=== PATIENT | male | born 1965 | race Caucasian/White ===

== ENCOUNTER 2017-09-19 07:47 | Day surgery (SDC) | payer MEDICAID ==
[2017-09-19] VITALS (11 sets, daily range): BP systolic 126–187; BP diastolic 67–92
[~2017-09-19] VITALS: Ht 188 cm; Wt 112.8 kg
[2017-09-19] MEDS ORDERED: nitroGLYCERIN 0.4mg SUBLingual tab SL PRN (08:15)
[2017-09-19] MEDS ORDERED: LORazepam 0.5 MG tablet PO PRN (08:15)
[2017-09-19] MEDS ORDERED: diphenhydrAMINE 25mg capsule PO PRN (08:15)
[2017-09-19] MEDS ORDERED: normal saline 1000ml 1,000 ML IV SCH (08:15)
[2017-09-19] MEDS ORDERED: TURM538C PO (08:24)
[2017-09-19] MEDS ORDERED: GEMF600T PO (08:24)
[2017-09-19] MEDS ORDERED: AMLO2.5T2 PO (08:24)
[2017-09-19] MEDS ORDERED: ASPI81TA52 PO (08:24)
[2017-09-19] MEDS ORDERED: LOSA25TA96 PO (08:24)
[2017-09-19] MEDS ORDERED: OMEG1CAP20 PO (08:24)
[2017-09-19] MEDS ORDERED: SERT25TA PO (08:24)
[2017-09-19 08:46] LABS: BASOPHILS % (AUTO) 0.5 % (0-1); EOSINOPHILS # (AUTO) 0.1 X10'3 (0-0.9); EOSINOPHILS % (AUTO) 2.3 % (0-6); HEMATOCRIT 47.3 % (42.0-52.0); HEMOGLOBIN 16.6 g/dl (14.0-17.9); LYMPHOCYTES # (AUTO) 2.3 X10'3 (1.1-4.8); MEAN CORPUSCULAR HEMOGLOBIN 30.2 PG (27.0-31.0); MEAN CORPUSCULAR HGB CONC 35.1 % (33.0-36.5); MEAN CORPUSCULAR VOLUME 86.2 FL (78-98); MEAN PLATELET VOLUME 8.3 FL (7.4-10.4); MONOCYTES # (AUTO) 0.4 X10'3 (0-0.9); MONOCYTES % (AUTO) 7.6 % (2-12); NEUTROPHILS # (AUTO) 2.9 X10'3 (1.8-7.7); NEUTROPHILS % (AUTO) 50.6 % (42-75); PLATELET COUNT 253 X10'3 (140-440); RED BLOOD COUNT 5.49 X10'6 (4.70-6.10); RED CELL DISTRIBUTION WIDTH 12.8 % (11.5-14.5); WHITE BLOOD COUNT 5.8 X10'3 (4.5-11.0)
[2017-09-19 08:55] LABS: ALBUMIN 4.5 G/DL (3.4-5.0); ANION GAP 11 (8-16); BLOOD UREA NITROGEN 10 MG/DL (7-18); BUN/CREATININE RATIO 13.2 (5.4-32.0); CALCIUM 9.4 MG/DL (8.5-10.1); CHLORIDE 105 MMOL/L (99-107); CREATININE 0.76 MG/DL (0.60-1.10); GLUCOSE 100 MG/DL (70-104); POTASSIUM 3.1 MMOL/L (3.5-5.1); SODIUM 143 MMOL/L (135-145); TOTAL CARBON DIOXIDE 27.3 MMOL/L (24-32); eGFR > 90 ML/MIN
[2017-09-19 08:57] LABS: INR 1.1 INR; PARTIAL THROMBOPLASTIN TIME 27 SECONDS (22-32)
[2017-09-19] MEDS ORDERED: iohexol 350 MG/ML 50ML vial IV ONE ×2 (10:21→11:06)
[2017-09-19] MEDS ORDERED: midazolam 2 mg/2 ml injection ONE (10:21)
[2017-09-19] MEDS ORDERED: iohexol 350MG/ML 100ml bottle IV ONE (10:21)
[2017-09-19] MEDS ORDERED: fentaNYL/PF 50MCG/1 ML 2ML syringe ONE (10:21)
[2017-09-19] MEDS ORDERED: LIDOcaine 1%/PF (10mg/ml) 5ml vial ONE (10:21)
[2017-09-19] MEDS ORDERED: OXAZEpam 15mg capsule PO PRN (12:25)
[2017-09-19] MEDS ORDERED: proCHLORperazine 10 MG/2 ml inj IV PRN (12:25)
[2017-09-19] MEDS ORDERED: HYDROcodone/acetaminophen 10/325mg tab PO PRN (12:25)
[2017-09-19] MEDS ORDERED: HYDROcodone/acetaminophen 5mg/325mg tablet PO PRN (12:25)
[2017-09-19] MEDS ORDERED: ondansetron/PF 4mg/2ml inj IV PRN (12:25)
== END 2017-09-19 17:00 | disposition home or self-care (01) ==
LOC: SSTAY O 07:47
PROVIDERS: ATTEND Internal Medicine Cardiovascular Disease
DX: I25.10 Atherosclerotic heart disease of native coronary artery without angina pectoris (principal); G47.33 Obstructive sleep apnea (adult) (pediatric); F17.220 Nicotine dependence, chewing tobacco, uncomplicated; E78.5 Hyperlipidemia, unspecified; I10 Essential (primary) hypertension; M19.90 Unspecified osteoarthritis, unspecified site; I49.9 Cardiac arrhythmia, unspecified; F32.9 Major depressive disorder, single episode, unspecified; Z79.82 Long term (current) use of aspirin; Z83.3 Family history of diabetes mellitus; Z98.890 Other specified postprocedural states; Z90.89 Acquired absence of other organs; Z79.899 Other long term (current) drug therapy
CPT/HCPCS: 36415; 71046; 80048; 85025; 85610; 85730; 93458; 99152; 99153; A6257; C1760; C1769; J1644; J2001; J2250; J3010; J7030; Q0163; Q9967; A4620

== ENCOUNTER 2020-10-11 12:14 | Inpatient (IN) | payer MEDICAID ==
[~2020-10-11] VITALS: Ht 188 cm; Wt 127.0 kg
[~2020-10-11 12:14] MED LIST: AMLO2.5T2 PO; ASPI81TA52 PO; GEMF600T PO; LOSA25TA96 PO; OMEG1CAP20 PO; SERT25TA PO; TURM538C PO
[2020-10-11] MEDS ORDERED: ALBU90AE PO (12:47)
[2020-10-11 12:52] LABS: BASOPHILS % (AUTO) 0.4 % (0-1); EOSINOPHILS % (AUTO) 0 % (0-6); HEMATOCRIT 44.6 % (42.0-52.0); HEMOGLOBIN 15.1 g/dl (14.0-17.9); LYMPHOCYTES # (AUTO) 0.4 X10'3 (1.1-4.8); LYMPHOCYTES % (AUTO) 5.6 % (21-51); MEAN CORPUSCULAR HGB CONC 33.9 g/dL (33.0-36.5); MEAN CORPUSCULAR VOLUME 88.3 FL (78-98); MEAN PLATELET VOLUME 8.8 FL (7.4-10.4); MONOCYTES # (AUTO) 0.2 X10'3 (0-0.9); MONOCYTES % (AUTO) 3.1 % (2-12); NEUTROPHILS # (AUTO) 6.7 X10'3 (1.8-7.7); NEUTROPHILS % (AUTO) 90.9 % (42-75); PLATELET COUNT 172 X10'3 (140-440); RED BLOOD COUNT 5.05 X10'6 (4.70-6.10); RED CELL DISTRIBUTION WIDTH 12.6 % (11.5-14.5); WHITE BLOOD COUNT 7.4 X10'3 (4.5-11.0)
[2020-10-11 12:59] LABS: CLARITY,URINE SLIGHTLY CLOUDY (Clear); COLOR,URINE YELLOW (Yellow); GLUCOSE, URINE NEGATIVE (Neg); KETONES,URINE NEGATIVE (Neg); LEUKOCYTE ESTERASE ,URINE NEGATIVE (Neg); NITRITES, URINE NEGATIVE (Neg); OCCULT BLOOD,URINE MODERATE (Neg); PROTEIN,URINE >=300 mg/dl (Neg)
[2020-10-11 13:01] LABS: UA COLLECTION TYPE CLN CATCH MIDSTREAM
[2020-10-11 13:08] LABS: BACTERIA,URINE 1+ /HPF (Neg); CELLULAR CAST 0-4 /LPF (NEGATIVE); SQUAMOUS EPITHELIAL CELL,UR MODERATE /LPF (FEW)
[2020-10-11 13:09] LABS: HYALINE CASTS 0-3 /LPF (NEGATIVE)
[2020-10-11 13:20] LABS: ALANINE AMINOTRANSFERASE 26 U/L (12-78); ALBUMIN 2.7 G/DL (3.4-5.0); ALBUMIN/GLOBULIN RATIO 0.6 (1.1-1.5); ALKALINE PHOSPHATASE 74 IU/L (46-116); ANION GAP 12 (8-16); ASPARTATE AMINO TRANSFERASE 71 U/L (10-37); BILIRUBIN,TOTAL 0.4 MG/DL (0.1-1.0); BLOOD UREA NITROGEN 14 MG/DL (7-18); BUN/CREATININE RATIO 18.7 (5.4-32.0); CALCIUM 8.6 MG/DL (8.5-10.1); CHLORIDE 102 MMOL/L (99-107); CREATININE 0.75 MG/DL (0.60-1.10); GLUCOSE 132 MG/DL (70-104); POTASSIUM 3.7 MMOL/L (3.5-5.1); SODIUM 138 MMOL/L (135-145); TOTAL CARBON DIOXIDE 24.4 MMOL/L (24-32); TOTAL PROTEIN 7.3 G/DL (6.4-8.2); eGFR > 90 ML/MIN
[2020-10-11] MEDS ORDERED: normal saline 1000ML IV soln IVB ONE (13:25)
--- NOTE | 2020-10-11 13:58 | NUR ---
Pt gave verbal consent to update alton and daughter Augusta, 2 separate incoming calls, on his status which was done. indicated she is covid positive currently, 1.5 hrs away and without a cell phone to be able to notify staff she is here when pt ready for DC. Reassured her staff would work out details when it was time and asked her to be sure to communicate she was 1.5 hrs out.
[2020-10-11] MEDS ORDERED: AMLO10TA13 PO (14:01)
[2020-10-11] MEDS ORDERED: LOSA100T57 PO (14:02)
[2020-10-11] MEDS ORDERED: ATOR40TA72 PO (14:03)
--- NOTE | 2020-10-11 14:26 | NUR ---
Lab at bedside to draw cultures
[2020-10-11] MEDS ORDERED: acetaminophen 650mg rectal suppository RC PRN (15:00)
[2020-10-11] MEDS ORDERED: magnesium hydroxide 30ml (MOM) UD suspension PO PRN (15:00)
[2020-10-11] MEDS ORDERED: magnesium 4gm in 100ml NS 100 ML IV PRN (15:00)
[2020-10-11] MEDS ORDERED: bisacodyl 10mg suppository rectal RC PRN (15:00)
[2020-10-11] MEDS ORDERED: dexamethasone 4mg/ml inj IV SCH (15:00)
[2020-10-11] MEDS ORDERED: morphine 2 MG/ML inj. syringe IV PRN (15:00)
[2020-10-11] MEDS: normal saline 1000ml 1,000 ML IV SCH (15:00)
[2020-10-11] MEDS ORDERED: mag hydrox/Alum hydrox/simeth 30ml oral suspension PO PRN (15:00)
[2020-10-11] MEDS ORDERED: potassium Cl 40MEQ/1/2NS 520ml 520 ML IV PRN ×2 (15:00)
[2020-10-11] MEDS ORDERED: magnesium 2GM in 50ml NS 50 ML IV PRN (15:00)
[2020-10-11] MEDS ORDERED: ondansetron/PF 4mg/2ml inj IV PRN (15:00)
[2020-10-11] MEDS ORDERED: magnesium Cl slow-release 64mg tablet PO PRN (15:00)
[2020-10-11] MEDS ORDERED: diphenhydrAMINE 25mg capsule PO PRN (15:00)
[2020-10-11] MEDS ORDERED: acetaminophen 325mg tablet PO PRN ×2 (15:00)
[2020-10-11] MEDS ORDERED: potassium Cl 20 mEq SR tablet PO PRN (15:00)
[2020-10-11 15:30] LABS: PARTIAL THROMBOPLASTIN TIME 33 SECONDS (22-32)
[2020-10-11] MEDS ORDERED: iohexol 350MG/ML 100ml bottle IV ONE (15:36)
[2020-10-11] MEDS ORDERED: NS IV ONE (15:45)
[2020-10-11] MEDS ORDERED: REMDESIVIR IV ONE (15:45)
[2020-10-11 15:46] LABS: HEMOGLOBIN A1C 5.8 % (4.5-6.2)
[2020-10-11] MEDS: HYDROcodone/acetaminophen 5mg/325mg tablet PO PRN (15:53)
--- NOTE | 2020-10-11 16:09 | NUR ---
Spoke with Dr. Murillo re: Remdesivir and Decadron. We will change time of decadron to 1999, and our pharmacist will call [facility] pharmacy to find out what dose of Remdesivir pt was given and f/u.
[2020-10-11] MEDS ORDERED: REMDESIVIR 100 MG in NS 100ml IVPB IV ONE (16:20)
--- NOTE | 2020-10-11 16:26 | NUR ---
Pt to go to CT, then to floor with IVET Robert
[2020-10-11 18:00] VITALS: BP 178/94
--- NOTE | 2020-10-11 18:02 | NUR ---
Patient in room PCU 3008. I have received report from Bibiana and had the opportunity to ask questions and assume patient care.
--- NOTE | 2020-10-11 18:18 | NUR ---
Page sent martina Addendum: 10/11/20 at 1819 by Bibiana Aquino RN Page sent to Dr. Murillo advising patient's bp is elevated 178/94, awaiting new orders
[2020-10-11] MEDS ORDERED: amLODIPine 5mg tablet PO ONE (18:25)
[2020-10-11] MEDS: K and/or MAG REPLACEMENT MC SCH (20:00)
[2020-10-11] MEDS: enoxaparin 60mg/0.6ml syringe SUBCUT SCH (20:28)
[2020-10-11] MEDS: losartan 50mg tablet PO SCH (20:29)
[2020-10-11] MEDS: dexamethasone 4mg/ml inj IV SCH (20:29)
--- NOTE | 2020-10-11 21:22 | NUR ---
patient is observed to be breathing easily, he has been given a cup of water ad instructed on how to use his Incentive spirometer
--- NOTE | 2020-10-11 23:43 | NUR ---
patient is saturating @85-87 % on 6L on Nasal canula- respiratory therapy has been notified to give him a breathing treatment.patient has also been instructed to use his IS and dep cough.
[2020-10-12] MEDS: ALBUTEROL INHALER 1 PUFF/90 MCG INHALER IH PRN (00:53)
[2020-10-12 01:47] LABS: BASOPHILS % (AUTO) 0.1 % (0-1); EOSINOPHILS % (AUTO) 0 % (0-6); HEMATOCRIT 39.8 % (42.0-52.0); HEMOGLOBIN 13.7 g/dl (14.0-17.9); LYMPHOCYTES # (AUTO) 0.5 X10'3 (1.1-4.8); LYMPHOCYTES % (AUTO) 6.7 % (21-51); MEAN CORPUSCULAR HEMOGLOBIN 29.9 PG (27.0-31.0); MEAN CORPUSCULAR HGB CONC 34.6 g/dL (33.0-36.5); MEAN CORPUSCULAR VOLUME 86.5 FL (78-98); MEAN PLATELET VOLUME 8.9 FL (7.4-10.4); MONOCYTES # (AUTO) 0.2 X10'3 (0-0.9); MONOCYTES % (AUTO) 3.4 % (2-12); NEUTROPHILS # (AUTO) 6.4 X10'3 (1.8-7.7); NEUTROPHILS % (AUTO) 89.8 % (42-75); PLATELET COUNT 176 X10'3 (140-440); RED CELL DISTRIBUTION WIDTH 12.6 % (11.5-14.5); WHITE BLOOD COUNT 7.2 X10'3 (4.5-11.0)
[2020-10-12 01:53] LABS: D-DIMER 0.44 MG/L FEU (0-0.50)
[2020-10-12 02:00] VITALS: BP_SYST 156; BP_SYST 163; BP_DIAS 81; BP_DIAS 95
[2020-10-12 02:01] LABS: ALANINE AMINOTRANSFERASE 32 U/L (12-78); ALBUMIN 2.5 G/DL (3.4-5.0); ALBUMIN/GLOBULIN RATIO 0.6 (1.1-1.5); ALKALINE PHOSPHATASE 74 IU/L (46-116); ANION GAP 10 (8-16); ASPARTATE AMINO TRANSFERASE 76 U/L (10-37); BILIRUBIN,TOTAL 0.4 MG/DL (0.1-1.0); BLOOD UREA NITROGEN 19 MG/DL (7-18); BUN/CREATININE RATIO 24.1 (5.4-32.0); CALCIUM 8.3 MG/DL (8.5-10.1); CHLORIDE 101 MMOL/L (99-107); CREATININE 0.79 MG/DL (0.60-1.10); GLUCOSE 135 MG/DL (70-104); POTASSIUM 3.1 MMOL/L (3.5-5.1); SODIUM 138 MMOL/L (135-145); TOTAL CARBON DIOXIDE 27.2 MMOL/L (24-32); TOTAL PROTEIN 6.9 G/DL (6.4-8.2); eGFR > 90 ML/MIN
[2020-10-12 02:05] LABS: C-REACTIVE PROTEIN 14.54 MG/DL (0.0-0.5); CHOL/HDL RATIO 2.5 (0.00-4.99); CHOLESTEROL 111 MG/DL (0-200); HDL CHOLESTEROL 45 MG/DL (35-60); LACTATE DEHYDROGENASE 504 U/L (85-227); LDL CHOLESTEROL 44 MG/DL (50-100); MAGNESIUM 1.9 MG/DL (1.5-2.4); TRIGLYCERIDES 126 MG/DL (20-135)
[2020-10-12 02:06] LABS: PHOSPHORUS 2.9 MG/DL (2.3-4.5)
[2020-10-12] MEDS: normal saline 1000ml 1,000 ML IV SCH ×2 (04:20→16:32)
[2020-10-12 08:00] VITALS: BP 165/93
[2020-10-12] MEDS ORDERED: [UNRECOGNIZED DRUG - OTHER] PO SCH (08:00)
[2020-10-12] MEDS ORDERED: FISH OIL PO SCH (08:00)
[2020-10-12] MEDS ORDERED: OMEGA PO SCH (08:00)
[2020-10-12] MEDS ORDERED: FATTY ACIDS PO SCH (08:00)
[2020-10-12] MEDS: guaiFENesin/codeine phos 10ml UD oral syrup PO PRN ×4 (08:07→21:30)
[2020-10-12] MEDS: aspirin 81mg tablet.DR PO SCH (08:07)
[2020-10-12] MEDS: sertraline 50mg tablet PO SCH (08:07)
[2020-10-12] MEDS: atorvastatin 20mg tablet PO SCH (08:08)
[2020-10-12] MEDS: enoxaparin 60mg/0.6ml syringe SUBCUT SCH ×2 (08:08→19:42)
[2020-10-12] MEDS: dexamethasone 4mg/ml inj IV SCH ×2 (08:09→19:43)
[2020-10-12] MEDS: losartan 50mg tablet PO SCH ×2 (08:14→19:41)
[2020-10-12] MEDS: amLODIPine 5mg tablet PO SCH (08:14)
[2020-10-12] MEDS: REMDESIVIR 100MG inj. 100 MG in normal saline 100ml IV soln 100 ML IV SCH (09:43)
[2020-10-12] MEDS: HYDROcodone/acetaminophen 10/325mg tab PO PRN ×2 (09:43→14:11)
[2020-10-12] MEDS: K and/or MAG REPLACEMENT MC SCH ×2 (09:55→19:43)
[2020-10-12] MEDS: potassium Cl 20 mEq SR tablet PO PRN ×3 (10:55→19:41)
[2020-10-12 12:00] VITALS: BP 122/63
[2020-10-12 16:00] VITALS: BP 171/90
--- NOTE | 2020-10-12 16:30 | NUR ---
Notified Dr. Murillo in regards to patient's bp of 171/90 awaiting new orders
[2020-10-12 18:00] VITALS: BP 147/76
--- NOTE | 2020-10-12 18:00 | NUR ---
patient report received from [facility], all discussions were done.
[2020-10-13] MEDS: HYDROcodone/acetaminophen 10/325mg tab PO PRN ×3 (01:30→13:23)
[2020-10-13 02:00] VITALS: BP 157/73
[2020-10-13] MEDS: guaiFENesin/codeine phos 10ml UD oral syrup PO PRN ×3 (03:30→20:05)
[2020-10-13] MEDS ORDERED: atropine 0.1mg/ml 10ml syringe IV ONE (05:00)
--- NOTE | 2020-10-13 05:26 | NUR ---
patient received a 0.5mg of Atropine for his slow heart rate, medication was pushed by jefferson Cao RN.
[2020-10-13 07:00] VITALS: BP 153/55
[2020-10-13 07:24] LABS: BASOPHILS % (AUTO) 0.1 % (0-1); EOSINOPHILS % (AUTO) 0 % (0-6); HEMATOCRIT 40.2 % (42.0-52.0); HEMOGLOBIN 13.5 g/dl (14.0-17.9); LYMPHOCYTES # (AUTO) 0.7 X10'3 (1.1-4.8); LYMPHOCYTES % (AUTO) 6.4 % (21-51); MEAN CORPUSCULAR HEMOGLOBIN 29.8 PG (27.0-31.0); MEAN CORPUSCULAR HGB CONC 33.5 g/dL (33.0-36.5); MEAN CORPUSCULAR VOLUME 89.1 FL (78-98); MEAN PLATELET VOLUME 8.9 FL (7.4-10.4); MONOCYTES # (AUTO) 0.7 X10'3 (0-0.9); MONOCYTES % (AUTO) 5.9 % (2-12); NEUTROPHILS % (AUTO) 87.6 % (42-75); PLATELET COUNT 219 X10'3 (140-440); RED BLOOD COUNT 4.51 X10'6 (4.70-6.10); RED CELL DISTRIBUTION WIDTH 12.8 % (11.5-14.5); WHITE BLOOD COUNT 11.5 X10'3 (4.5-11.0)
[2020-10-13 07:38] LABS: D-DIMER 0.46 MG/L FEU (0-0.50)
[2020-10-13 07:59] LABS: ALANINE AMINOTRANSFERASE 39 U/L (12-78); ALBUMIN 2.4 G/DL (3.4-5.0); ALBUMIN/GLOBULIN RATIO 0.6 (1.1-1.5); ALKALINE PHOSPHATASE 82 IU/L (46-116); ANION GAP 7 (8-16); ASPARTATE AMINO TRANSFERASE 74 U/L (10-37); BILIRUBIN,TOTAL 0.3 MG/DL (0.1-1.0); BLOOD UREA NITROGEN 22 MG/DL (7-18); BUN/CREATININE RATIO 36.1 (5.4-32.0); C-REACTIVE PROTEIN 6.16 MG/DL (0.0-0.5); CALCIUM 8.2 MG/DL (8.5-10.1); CHLORIDE 106 MMOL/L (99-107); CREATININE 0.61 MG/DL (0.60-1.10); GLUCOSE 168 MG/DL (70-104); LACTATE DEHYDROGENASE 1787 U/L (85-227); MAGNESIUM 2.1 MG/DL (1.5-2.4); PHOSPHORUS 3.5 MG/DL (2.3-4.5); POTASSIUM 3.9 MMOL/L (3.5-5.1); SODIUM 142 MMOL/L (135-145); TOTAL CARBON DIOXIDE 28.8 MMOL/L (24-32); TOTAL PROTEIN 6.5 G/DL (6.4-8.2); eGFR > 90 ML/MIN
[2020-10-13] MEDS: K and/or MAG REPLACEMENT MC SCH ×2 (08:00→20:23)
[2020-10-13] MEDS: REMDESIVIR 100MG inj. 100 MG in normal saline 100ml IV soln 100 ML IV SCH (08:30)
[2020-10-13] MEDS: dexamethasone 4mg/ml inj IV SCH ×2 (08:33→20:06)
[2020-10-13] MEDS: enoxaparin 60mg/0.6ml syringe SUBCUT SCH ×2 (08:34→20:06)
[2020-10-13] MEDS: amLODIPine 5mg tablet PO SCH (08:34)
[2020-10-13] MEDS: losartan 50mg tablet PO SCH ×2 (08:35→20:12)
[2020-10-13] MEDS: aspirin 81mg tablet.DR PO SCH (08:35)
[2020-10-13] MEDS: atorvastatin 20mg tablet PO SCH (08:35)
[2020-10-13] MEDS: sertraline 50mg tablet PO SCH (08:35)
[2020-10-13] MEDS: normal saline 1000ml 1,000 ML IV SCH ×2 (08:40→20:25)
[2020-10-13 11:00] VITALS: BP 154/73
--- NOTE | 2020-10-13 11:10 | NUR ---
PAGER ID: [phone] MESSAGE: Room 3008, Brandyn Garcia. Can patient have cough drops and tesslon pearls please? Lindsay COONEY
--- NOTE | 2020-10-13 12:07 | NUR ---
PAGER ID: [phone] MESSAGE: Room 3008, Jose,Brandyn requesting cough drops please. IVET Montoya
[2020-10-13] MEDS: benzocaine/menthol oral lozeng 1 EACH BOX MM PRN (13:23)
[2020-10-13] MEDS: benzonatate 100mg capsule PO PRN ×2 (13:23→20:06)
[2020-10-13 15:00] VITALS: BP 150/73
[2020-10-13 18:00] VITALS: BP 145/67
[2020-10-13] MEDS: ALPRAZolam 0.5mg tablet PO PRN (20:13)
[2020-10-13 22:00] VITALS: BP 108/59
[2020-10-14] VITALS (13 sets, daily range): BP systolic 142–181; BP diastolic 78–96
[2020-10-14] MEDS: guaiFENesin/codeine phos 10ml UD oral syrup PO PRN ×4 (00:07→21:44)
[2020-10-14] MEDS: ALPRAZolam 0.5mg tablet PO PRN ×3 (04:03→20:36)
[2020-10-14 07:43] LABS: BASOPHILS % (AUTO) 0.3 % (0-1); EOSINOPHILS % (AUTO) 0 % (0-6); HEMOGLOBIN 13.1 g/dl (14.0-17.9); LYMPHOCYTES # (AUTO) 0.8 X10'3 (1.1-4.8); LYMPHOCYTES % (AUTO) 6.4 % (21-51); MEAN CORPUSCULAR HEMOGLOBIN 29.7 PG (27.0-31.0); MEAN CORPUSCULAR HGB CONC 33.6 g/dL (33.0-36.5); MEAN CORPUSCULAR VOLUME 88.4 FL (78-98); MEAN PLATELET VOLUME 9.3 FL (7.4-10.4); MONOCYTES # (AUTO) 0.6 X10'3 (0-0.9); MONOCYTES % (AUTO) 5.2 % (2-12); NEUTROPHILS # (AUTO) 10.9 X10'3 (1.8-7.7); NEUTROPHILS % (AUTO) 88.1 % (42-75); PLATELET COUNT 239 X10'3 (140-440); RED BLOOD COUNT 4.41 X10'6 (4.70-6.10); RED CELL DISTRIBUTION WIDTH 12.6 % (11.5-14.5); WHITE BLOOD COUNT 12.4 X10'3 (4.5-11.0)
[2020-10-14] MEDS: K and/or MAG REPLACEMENT MC SCH ×2 (08:00→19:26)
[2020-10-14] MEDS: dexamethasone 4mg/ml inj IV SCH ×2 (08:00→19:24)
[2020-10-14 08:02] LABS: ALANINE AMINOTRANSFERASE 42 U/L (12-78); ALBUMIN 2.2 G/DL (3.4-5.0); ALBUMIN/GLOBULIN RATIO 0.6 (1.1-1.5); ALKALINE PHOSPHATASE 95 IU/L (46-116); ANION GAP 6 (8-16); ASPARTATE AMINO TRANSFERASE 61 U/L (10-37); BILIRUBIN,TOTAL 0.4 MG/DL (0.1-1.0); BLOOD UREA NITROGEN 17 MG/DL (7-18); BUN/CREATININE RATIO 29.3 (5.4-32.0); C-REACTIVE PROTEIN 3.16 MG/DL (0.0-0.5); CALCIUM 8.1 MG/DL (8.5-10.1); CHLORIDE 105 MMOL/L (99-107); CREATININE 0.58 MG/DL (0.60-1.10); GLUCOSE 204 MG/DL (70-104); LACTATE DEHYDROGENASE 688 U/L (85-227); MAGNESIUM 1.8 MG/DL (1.5-2.4); PHOSPHORUS 3.4 MG/DL (2.3-4.5); POTASSIUM 3.6 MMOL/L (3.5-5.1); SODIUM 140 MMOL/L (135-145); TOTAL CARBON DIOXIDE 28.6 MMOL/L (24-32); eGFR > 90 ML/MIN
[2020-10-14] MEDS: normal saline 1000ml 1,000 ML IV SCH (08:35)
[2020-10-14] MEDS: REMDESIVIR 100MG inj. 100 MG in normal saline 100ml IV soln 100 ML IV SCH (08:35)
[2020-10-14] MEDS: atorvastatin 20mg tablet PO SCH (08:38)
[2020-10-14] MEDS: sertraline 50mg tablet PO SCH (08:38)
[2020-10-14] MEDS: losartan 50mg tablet PO SCH ×2 (08:38→19:24)
[2020-10-14] MEDS: amLODIPine 5mg tablet PO SCH (08:38)
[2020-10-14] MEDS: aspirin 81mg tablet.DR PO SCH (08:38)
[2020-10-14] MEDS: enoxaparin 60mg/0.6ml syringe SUBCUT SCH ×2 (08:39→19:23)
[2020-10-14] MEDS: benzonatate 100mg capsule PO PRN ×2 (08:39→16:31)
[2020-10-14] MEDS: HYDROcodone/acetaminophen 10/325mg tab PO PRN ×3 (08:39→23:34)
[2020-10-14] MEDS: potassium Cl 20 mEq SR tablet PO PRN (08:40)
--- NOTE | 2020-10-14 11:28 | NUR ---
patient transferred to ICU at this time.
--- NOTE | 2020-10-14 11:35 | NUR ---
Transferred from PCU. by bed, pt AAOx 3 in respiratory distress on 100 % 40l vapotherm and on 100% NRB saturating 90 -95 %
[2020-10-14] MEDS: furosemide 20 MG/2 ML vial IV SCH (12:20)
--- NOTE | 2020-10-14 13:20 | NUR ---
Patient remains on high requirement for oxygen, still on 40L 100% high flow nasal cannula and 100% NRB, patient easily desaturates to 80"s when he removes the NRB. Patient is also bradycardic in the 40's. Dr Stallworth saw patient and is aware of the bradycardia and O2 requirement. patient remains alert and oriented x 3.
[2020-10-14] MEDS: morphine 2 MG/ML inj. syringe IV PRN (19:24)
--- NOTE | 2020-10-14 22:20 | NUR ---
RN Note -pt proned for 40 minutes. Vitals were good, but pt was uncomfortable did not want to continue
[2020-10-15] VITALS (24 sets, daily range): BP systolic 117–175; BP diastolic 49–86
[2020-10-15] MEDS: guaiFENesin/codeine phos 10ml UD oral syrup PO PRN ×2 (05:04→20:23)
[2020-10-15] MEDS: HYDROcodone/acetaminophen 10/325mg tab PO PRN ×4 (05:05→20:23)
[2020-10-15 07:05] LABS: BASOPHILS % (AUTO) 0.5 % (0-1); EOSINOPHILS % (AUTO) 0 % (0-6); HEMATOCRIT 38.5 % (42.0-52.0); HEMOGLOBIN 13.2 g/dl (14.0-17.9); LYMPHOCYTES # (AUTO) 0.6 X10'3 (1.1-4.8); LYMPHOCYTES % (AUTO) 6.7 % (21-51); MEAN CORPUSCULAR HGB CONC 34.3 g/dL (33.0-36.5); MEAN CORPUSCULAR VOLUME 87.4 FL (78-98); MEAN PLATELET VOLUME 9.1 FL (7.4-10.4); MONOCYTES # (AUTO) 0.3 X10'3 (0-0.9); MONOCYTES % (AUTO) 2.9 % (2-12); NEUTROPHILS % (AUTO) 89.9 % (42-75); PLATELET COUNT 251 X10'3 (140-440); RED CELL DISTRIBUTION WIDTH 12.7 % (11.5-14.5); WHITE BLOOD COUNT 8.9 X10'3 (4.5-11.0)
[2020-10-15] MEDS: enoxaparin 60mg/0.6ml syringe SUBCUT SCH ×2 (07:18→20:19)
[2020-10-15] MEDS: losartan 50mg tablet PO SCH ×2 (07:19→20:18)
[2020-10-15] MEDS: aspirin 81mg tablet.DR PO SCH (07:19)
[2020-10-15] MEDS: morphine 2 MG/ML inj. syringe IV PRN (07:19)
[2020-10-15] MEDS: amLODIPine 5mg tablet PO SCH (07:20)
[2020-10-15] MEDS: REMDESIVIR 100MG inj. 100 MG in normal saline 100ml IV soln 100 ML IV SCH (07:20)
[2020-10-15] MEDS: atorvastatin 20mg tablet PO SCH (07:20)
[2020-10-15] MEDS: sertraline 50mg tablet PO SCH (07:20)
[2020-10-15] MEDS: furosemide 20 MG/2 ML vial IV SCH (07:21)
[2020-10-15] MEDS: dexamethasone 4mg/ml inj IV SCH (07:22)
[2020-10-15 07:26] LABS: ALANINE AMINOTRANSFERASE 38 U/L (12-78); ALBUMIN 2.1 G/DL (3.4-5.0); ALBUMIN/GLOBULIN RATIO 0.5 (1.1-1.5); ALKALINE PHOSPHATASE 116 IU/L (46-116); ANION GAP 7 (8-16); ASPARTATE AMINO TRANSFERASE 50 U/L (10-37); BILIRUBIN,TOTAL 0.6 MG/DL (0.1-1.0); BLOOD UREA NITROGEN 18 MG/DL (7-18); C-REACTIVE PROTEIN 7.06 MG/DL (0.0-0.5); CALCIUM 8.2 MG/DL (8.5-10.1); CHLORIDE 102 MMOL/L (99-107); CREATININE 0.62 MG/DL (0.60-1.10); GLUCOSE 176 MG/DL (70-104); LACTATE DEHYDROGENASE 663 U/L (85-227); MAGNESIUM 1.9 MG/DL (1.5-2.4); POTASSIUM 3.3 MMOL/L (3.5-5.1); SODIUM 138 MMOL/L (135-145); TOTAL CARBON DIOXIDE 28.7 MMOL/L (24-32); TOTAL PROTEIN 6.1 G/DL (6.4-8.2); eGFR > 90 ML/MIN
[2020-10-15 07:52] LABS: D-DIMER 3.64 MG/L FEU (0-0.50)
[2020-10-15] MEDS: K and/or MAG REPLACEMENT MC SCH (08:00)
[2020-10-15] MEDS ORDERED: potassium Cl 40MEQ/1/2NS 520ml 520 ML IV PRN (10:20)
[2020-10-15] MEDS: potassium Cl 20 mEq SR tablet PO PRN ×2 (11:18→15:48)
[2020-10-15] MEDS: ALPRAZolam 0.5mg tablet PO PRN ×2 (11:19→20:23)
[2020-10-15] MEDS: methylPREDNISolone sod succ/PF 40mg inj. IV SCH (15:48)
[2020-10-16] VITALS (23 sets, daily range): BP systolic 136–188; BP diastolic 62–87
--- NOTE | 2020-10-16 | NUR ---
RN Not -Pt proned for three hours. Tolerated well.
[2020-10-16] MEDS: guaiFENesin/codeine phos 10ml UD oral syrup PO PRN ×3 (02:32→20:09)
[2020-10-16] MEDS: morphine 2 MG/ML inj. syringe IV PRN ×3 (02:32→15:47)
--- NOTE | 2020-10-16 06:00 | NUR ---
Patient in room CICU 2006. I have received report from [facility] and had the opportunity to ask questions and assume patient care.
[2020-10-16 06:25] LABS: BASOPHILS % (AUTO) 0.2 % (0-1); EOSINOPHILS % (AUTO) 0 % (0-6); HEMATOCRIT 39.2 % (42.0-52.0); HEMOGLOBIN 13.2 g/dl (14.0-17.9); LYMPHOCYTES # (AUTO) 0.7 X10'3 (1.1-4.8); LYMPHOCYTES % (AUTO) 5.9 % (21-51); MEAN CORPUSCULAR HEMOGLOBIN 29.8 PG (27.0-31.0); MEAN CORPUSCULAR HGB CONC 33.8 g/dL (33.0-36.5); MEAN CORPUSCULAR VOLUME 88.3 FL (78-98); MEAN PLATELET VOLUME 9.1 FL (7.4-10.4); MONOCYTES # (AUTO) 0.4 X10'3 (0-0.9); MONOCYTES % (AUTO) 3.4 % (2-12); NEUTROPHILS % (AUTO) 90.5 % (42-75); PLATELET COUNT 282 X10'3 (140-440); RED BLOOD COUNT 4.43 X10'6 (4.70-6.10); RED CELL DISTRIBUTION WIDTH 12.8 % (11.5-14.5); WHITE BLOOD COUNT 12.2 X10'3 (4.5-11.0)
[2020-10-16 06:31] LABS: D-DIMER 2.31 MG/L FEU (0-0.50)
[2020-10-16 06:41] LABS: ALANINE AMINOTRANSFERASE 32 U/L (12-78); ALBUMIN 2.1 G/DL (3.4-5.0); ALBUMIN/GLOBULIN RATIO 0.5 (1.1-1.5); ALKALINE PHOSPHATASE 114 IU/L (46-116); ANION GAP 5 (8-16); ASPARTATE AMINO TRANSFERASE 38 U/L (10-37); BILIRUBIN,TOTAL 0.5 MG/DL (0.1-1.0); BLOOD UREA NITROGEN 21 MG/DL (7-18); BUN/CREATININE RATIO 36.2 (5.4-32.0); C-REACTIVE PROTEIN 6.68 MG/DL (0.0-0.5); CALCIUM 8.5 MG/DL (8.5-10.1); CHLORIDE 101 MMOL/L (99-107); CREATININE 0.58 MG/DL (0.60-1.10); GLUCOSE 239 MG/DL (70-104); LACTATE DEHYDROGENASE 615 U/L (85-227); MAGNESIUM 2.1 MG/DL (1.5-2.4); PHOSPHORUS 3.4 MG/DL (2.3-4.5); POTASSIUM 3.7 MMOL/L (3.5-5.1); SODIUM 136 MMOL/L (135-145); TOTAL PROTEIN 6.2 G/DL (6.4-8.2); eGFR > 90 ML/MIN
[2020-10-16] MEDS: benzonatate 100mg capsule PO PRN ×2 (06:52→23:30)
[2020-10-16] MEDS: K and/or MAG REPLACEMENT MC SCH (08:00)
[2020-10-16] MEDS: furosemide 20 MG/2 ML vial IV SCH (08:11)
[2020-10-16] MEDS: enoxaparin 60mg/0.6ml syringe SUBCUT SCH ×2 (08:12→19:48)
[2020-10-16] MEDS: methylPREDNISolone sod succ/PF 40mg inj. IV SCH ×4 (08:12→23:30)
[2020-10-16] MEDS: HYDROcodone/acetaminophen 10/325mg tab PO PRN ×2 (08:13→13:06)
[2020-10-16] MEDS: atorvastatin 20mg tablet PO SCH (08:13)
[2020-10-16] MEDS: aspirin 81mg tablet.DR PO SCH (08:13)
[2020-10-16] MEDS: sertraline 50mg tablet PO SCH (08:14)
[2020-10-16] MEDS: amLODIPine 5mg tablet PO SCH (08:14)
[2020-10-16] MEDS: losartan 50mg tablet PO SCH ×2 (08:14→19:47)
[2020-10-16] MEDS ORDERED: insulin regular, human U-100 3ml vial - multi-dose SQ SCH (09:20)
[2020-10-16] MEDS ORDERED: dextrose ORAL solution 15 GM/59 ML bottle PO PRN ×2 (09:20)
[2020-10-16] MEDS ORDERED: glucagon, human recombinant 1mg kit SUBCUT PRN (09:20)
[2020-10-16] MEDS ORDERED: MESSAGE TO PHARMACY PO ONE (09:20)
[2020-10-16] MEDS ORDERED: dextrose 50%-water 50ml dispensing syringe IV PRN ×2 (09:20)
[2020-10-16] MEDS: ALPRAZolam 0.5mg tablet PO PRN ×2 (10:47→20:09)
--- NOTE | 2020-10-16 11:12 | NUR ---
Pt proned at 1050. O2 Saturation levels stable. Pt tolerating well.
--- NOTE | 2020-10-16 11:49 | NUR ---
Initial: Pt admit with acute respiratory failure from COVID-19 related pneumonia. Pt previously on a heart healthy diet documented with 100% PO intake however down to 50-75% PO intake on 10/15, back up to 100% PO intake at breakfast this morning. Temporary decreased in PO intake likely r/t increasing SOB. Recommend double protein TID for satiety and increased protein needs, d/w dietary. Pt started on hyperglycemic protocol and CHO controlled diet. Likely that BG elevated r/t steroid use as A1c is 5.8% and pt with no documented PMH DM. Recommend continuing heart healthy diet with hyperglycemic protocol for BG management. [facility] 10/14. Will continue to follow and make recommendations as appropriate. Recommendations: 1) Continue heart healthy diet 2) Hyperglycemic protocol for BG management given steroid use; A1c 5.8% with no documented PMH DM 3) Double eggs WB, double meat BIDLD 4) Bowel care per rx 5) Scaled weights per rx Addendum: 10/16/20 at [address] Amended: Links added.
[2020-10-16] MEDS: insulin glargine (Lantus) pen - multi-dose SQ SCH (20:00)
[2020-10-16] MEDS: insulin Lispro (HumaLOG) vial - multi-dose SQ SCH (20:06)
[2020-10-16] MEDS: HYDROcodone/acetaminophen 5mg/325mg tablet PO PRN (23:46)
[2020-10-17] VITALS (23 sets, daily range): BP systolic 130–167; BP diastolic 58–83
[2020-10-17] MEDS: ALBUTEROL INHALER 1 PUFF/90 MCG INHALER IH PRN (03:53)
[2020-10-17] MEDS: ALPRAZolam 0.5mg tablet PO PRN ×2 (04:00→13:42)
[2020-10-17] MEDS: dexmedetomidine/D5W 100mL 100 ML IV SCH ×3 (05:15→21:01)
[2020-10-17] MEDS: methylPREDNISolone sod succ/PF 40mg inj. IV SCH ×2 (07:17→15:00)
[2020-10-17] MEDS: aspirin 81mg tablet.DR PO SCH (07:20)
[2020-10-17] MEDS: guaiFENesin/codeine phos 10ml UD oral syrup PO PRN ×2 (07:20→13:52)
[2020-10-17] MEDS: enoxaparin 60mg/0.6ml syringe SUBCUT SCH ×2 (07:20→20:17)
[2020-10-17] MEDS: atorvastatin 20mg tablet PO SCH (07:20)
[2020-10-17] MEDS: sertraline 50mg tablet PO SCH (07:21)
[2020-10-17] MEDS: amLODIPine 5mg tablet PO SCH (07:21)
[2020-10-17] MEDS: losartan 50mg tablet PO SCH ×2 (07:22→20:16)
[2020-10-17] MEDS: K and/or MAG REPLACEMENT MC SCH (08:00)
[2020-10-17] MEDS: insulin Lispro (HumaLOG) vial - multi-dose SQ SCH ×3 (08:03→20:26)
[2020-10-17 10:50] LABS: ALANINE AMINOTRANSFERASE 29 U/L (12-78); ALBUMIN/GLOBULIN RATIO 0.5 (1.1-1.5); ALKALINE PHOSPHATASE 109 IU/L (46-116); ANION GAP 4 (8-16); ASPARTATE AMINO TRANSFERASE 39 U/L (10-37); BILIRUBIN,TOTAL 0.6 MG/DL (0.1-1.0); BLOOD UREA NITROGEN 19 MG/DL (7-18); BUN/CREATININE RATIO 32.8 (5.4-32.0); CALCIUM 8.3 MG/DL (8.5-10.1); CHLORIDE 103 MMOL/L (99-107); CREATININE 0.58 MG/DL (0.60-1.10); GLUCOSE 183 MG/DL (70-104); LACTATE DEHYDROGENASE 541 U/L (85-227); POTASSIUM 3.6 MMOL/L (3.5-5.1); SODIUM 139 MMOL/L (135-145); TOTAL CARBON DIOXIDE 31.6 MMOL/L (24-32); eGFR > 90 ML/MIN
[2020-10-17] MEDS: HYDROcodone/acetaminophen 5mg/325mg tablet PO PRN (13:53)
[2020-10-17] MEDS: benzonatate 100mg capsule PO PRN (20:16)
[2020-10-17] MEDS: insulin glargine (Lantus) pen - multi-dose SQ SCH (20:29)
[2020-10-18] VITALS (24 sets, daily range): BP systolic 115–161; BP diastolic 41–91
[2020-10-18] MEDS: methylPREDNISolone sod succ/PF 40mg inj. IV SCH ×3 (00:40→16:12)
[2020-10-18] MEDS: guaiFENesin/codeine phos 10ml UD oral syrup PO PRN ×4 (02:22→20:52)
[2020-10-18] MEDS: dexmedetomidine/D5W 100mL 100 ML IV SCH ×3 (04:54→20:40)
--- NOTE | 2020-10-18 06:30 | NUR ---
Patient in room CICU 2005. I have received report from Stas COONEY and had the opportunity to ask questions and assume patient care. Patient laying in bed with eyes closed, saline locked, on high flow nasal canula 40Lites at 100% fio2 sating mid to high 90's
[2020-10-18] MEDS: sertraline 50mg tablet PO SCH (07:57)
[2020-10-18] MEDS: furosemide 20 MG/2 ML vial IV SCH (07:57)
[2020-10-18] MEDS: famotidine/PF 10 mg/ml inj IV SCH ×2 (07:57→19:06)
[2020-10-18] MEDS: aspirin 81mg tablet.DR PO SCH (07:57)
[2020-10-18] MEDS: atorvastatin 20mg tablet PO SCH (07:58)
[2020-10-18] MEDS: amLODIPine 5mg tablet PO SCH (07:58)
[2020-10-18] MEDS: losartan 50mg tablet PO SCH ×2 (07:58→19:05)
[2020-10-18 08:01] LABS: BASOPHILS % (AUTO) 0.1 % (0-1); EOSINOPHILS % (AUTO) 0.1 % (0-6); HEMATOCRIT 40.5 % (42.0-52.0); HEMOGLOBIN 13.7 g/dl (14.0-17.9); LYMPHOCYTES # (AUTO) 0.5 X10'3 (1.1-4.8); LYMPHOCYTES % (AUTO) 4.8 % (21-51); MEAN CORPUSCULAR HGB CONC 33.8 g/dL (33.0-36.5); MEAN CORPUSCULAR VOLUME 88.6 FL (78-98); MEAN PLATELET VOLUME 8.7 FL (7.4-10.4); MONOCYTES # (AUTO) 0.3 X10'3 (0-0.9); MONOCYTES % (AUTO) 2.6 % (2-12); NEUTROPHILS # (AUTO) 9.3 X10'3 (1.8-7.7); NEUTROPHILS % (AUTO) 92.4 % (42-75); PLATELET COUNT 340 X10'3 (140-440); RED BLOOD COUNT 4.58 X10'6 (4.70-6.10); RED CELL DISTRIBUTION WIDTH 12.6 % (11.5-14.5); WHITE BLOOD COUNT 10.1 X10'3 (4.5-11.0)
[2020-10-18] MEDS: enoxaparin 60mg/0.6ml syringe SUBCUT SCH ×2 (08:01→19:06)
[2020-10-18 08:19] LABS: ALANINE AMINOTRANSFERASE 30 U/L (12-78); ALBUMIN/GLOBULIN RATIO 0.5 (1.1-1.5); ALKALINE PHOSPHATASE 126 IU/L (46-116); ANION GAP 8 (8-16); ASPARTATE AMINO TRANSFERASE 42 U/L (10-37); BILIRUBIN,TOTAL 0.7 MG/DL (0.1-1.0); BLOOD UREA NITROGEN 18 MG/DL (7-18); BUN/CREATININE RATIO 32.7 (5.4-32.0); CHLORIDE 104 MMOL/L (99-107); CREATININE 0.55 MG/DL (0.60-1.10); GLUCOSE 163 MG/DL (70-104); LACTATE DEHYDROGENASE 806 U/L (85-227); POTASSIUM 4.1 MMOL/L (3.5-5.1); SODIUM 141 MMOL/L (135-145); TOTAL CARBON DIOXIDE 28.6 MMOL/L (24-32); TOTAL PROTEIN 6.3 G/DL (6.4-8.2); eGFR > 90 ML/MIN
[2020-10-18] MEDS: insulin Lispro (HumaLOG) vial - multi-dose SQ SCH ×2 (08:24→19:09)
[2020-10-18] MEDS: ALPRAZolam 0.5mg tablet PO PRN ×2 (08:29→22:53)
[2020-10-18] MEDS: K and/or MAG REPLACEMENT MC SCH (08:51)
--- NOTE | 2020-10-18 09:41 | NUR ---
patients called, up dated her on his status, informed her that he is currently sleeping she stated that she will call back later and facetime him
[2020-10-18 09:50] LABS: D-DIMER 1.58 MG/L FEU (0-0.50)
--- NOTE | 2020-10-18 10:40 | NUR ---
Rounds Note Care team updated on patients status, made improvements on patients fio2 from 100% to 90%, reviewed labs and CXR, added daily labs of cbc, mg, phos and CMP. Discussed patients current diet order, informed Dr. Stallworth of Dr. Fabian decision to change him to a heart healthy diet as apposed to a carb controlled diet as he feels his elevated blood sugars are due to the corticosteroids that he is on. Discussed wether or not patient needs to be seen again by physical therapy. Dr. Stallworth stated that they can evaluate him again so long as they do not exhaust him to the point of desaturation. No other new orders at this time
[2020-10-18] MEDS: HYDROcodone/acetaminophen 10/325mg tab PO PRN ×2 (13:05→20:52)
[2020-10-18] MEDS: benzonatate 100mg capsule PO PRN ×2 (13:05→22:53)
[2020-10-18] MEDS: ALBUTEROL INHALER 1 PUFF/90 MCG INHALER IH PRN (13:24)
--- NOTE | 2020-10-18 18:05 | NUR ---
Problems reprioritized. Patient report given, questions answered & plan of care reviewed with Stas COONEY .
[2020-10-18] MEDS: insulin glargine (Lantus) pen - multi-dose SQ SCH (20:55)
[2020-10-19] VITALS (24 sets, daily range): BP systolic 122–158; BP diastolic 48–80
[2020-10-19] MEDS: methylPREDNISolone sod succ/PF 40mg inj. IV SCH ×2 (00:25→08:10)
[2020-10-19 03:37] LABS: BASOPHILS % (AUTO) 0.1 % (0-1); EOSINOPHILS % (AUTO) 0 % (0-6); HEMATOCRIT 38.2 % (42.0-52.0); HEMOGLOBIN 12.6 g/dl (14.0-17.9); LYMPHOCYTES # (AUTO) 0.5 X10'3 (1.1-4.8); LYMPHOCYTES % (AUTO) 4.2 % (21-51); MEAN CORPUSCULAR HEMOGLOBIN 29.3 PG (27.0-31.0); MEAN CORPUSCULAR HGB CONC 32.9 g/dL (33.0-36.5); MEAN CORPUSCULAR VOLUME 89.1 FL (78-98); MONOCYTES # (AUTO) 0.3 X10'3 (0-0.9); MONOCYTES % (AUTO) 2.6 % (2-12); NEUTROPHILS # (AUTO) 11.7 X10'3 (1.8-7.7); NEUTROPHILS % (AUTO) 93.1 % (42-75); PLATELET COUNT 358 X10'3 (140-440); RED BLOOD COUNT 4.29 X10'6 (4.70-6.10); RED CELL DISTRIBUTION WIDTH 12.4 % (11.5-14.5); WHITE BLOOD COUNT 12.6 X10'3 (4.5-11.0)
[2020-10-19 03:40] LABS: D-DIMER 0.76 MG/L FEU (0-0.50)
[2020-10-19 04:00] LABS: ALANINE AMINOTRANSFERASE 25 U/L (12-78); ALBUMIN 1.9 G/DL (3.4-5.0); ALBUMIN/GLOBULIN RATIO 0.5 (1.1-1.5); ALKALINE PHOSPHATASE 96 IU/L (46-116); ANION GAP 6 (8-16); ASPARTATE AMINO TRANSFERASE 35 U/L (10-37); BILIRUBIN,TOTAL 0.5 MG/DL (0.1-1.0); BLOOD UREA NITROGEN 25 MG/DL (7-18); BUN/CREATININE RATIO 33.8 (5.4-32.0); C-REACTIVE PROTEIN 2.79 MG/DL (0.0-0.5); CALCIUM 8.1 MG/DL (8.5-10.1); CHLORIDE 100 MMOL/L (99-107); CREATININE 0.74 MG/DL (0.60-1.10); GLUCOSE 210 MG/DL (70-104); MAGNESIUM 2.1 MG/DL (1.5-2.4); PHOSPHORUS 3.9 MG/DL (2.3-4.5); POTASSIUM 3.7 MMOL/L (3.5-5.1); SODIUM 137 MMOL/L (135-145); TOTAL CARBON DIOXIDE 31.3 MMOL/L (24-32); TOTAL PROTEIN 5.8 G/DL (6.4-8.2); eGFR > 90 ML/MIN
[2020-10-19] MEDS: dexmedetomidine/D5W 100mL 100 ML IV SCH (04:33)
[2020-10-19] MEDS: enoxaparin 60mg/0.6ml syringe SUBCUT SCH ×2 (08:10→19:39)
[2020-10-19] MEDS: aspirin 81mg tablet.DR PO SCH (08:11)
[2020-10-19] MEDS: sertraline 50mg tablet PO SCH (08:11)
[2020-10-19] MEDS: losartan 50mg tablet PO SCH ×2 (08:11→19:37)
[2020-10-19] MEDS: famotidine/PF 10 mg/ml inj IV SCH (08:12)
[2020-10-19] MEDS: atorvastatin 20mg tablet PO SCH (08:12)
[2020-10-19] MEDS: amLODIPine 5mg tablet PO SCH (08:12)
[2020-10-19] MEDS: ALPRAZolam 0.5mg tablet PO PRN ×2 (08:25→19:37)
[2020-10-19] MEDS: insulin Lispro (HumaLOG) vial - multi-dose SQ SCH ×3 (10:17→19:44)
[2020-10-19] MEDS: HYDROcodone/acetaminophen 10/325mg tab PO PRN ×2 (11:51→16:13)
[2020-10-19] MEDS: benzonatate 100mg capsule PO PRN (11:51)
--- NOTE | 2020-10-19 16:00 | NUR ---
Pt encouraged to and complied with proning. Pt tolerated well.
[2020-10-19] MEDS: famotidine 20mg tablet PO SCH (19:37)
[2020-10-19] MEDS: guaiFENesin/codeine phos 10ml UD oral syrup PO PRN (19:37)
[2020-10-19] MEDS: insulin glargine (Lantus) pen - multi-dose SQ SCH (21:55)
[2020-10-20] VITALS (24 sets, daily range): BP systolic 114–175; BP diastolic 58–89
[2020-10-20 02:27] LABS: BASOPHILS % (AUTO) 0.2 % (0-1); EOSINOPHILS % (AUTO) 0.2 % (0-6); HEMATOCRIT 38.8 % (42.0-52.0); LYMPHOCYTES # (AUTO) 1.2 X10'3 (1.1-4.8); LYMPHOCYTES % (AUTO) 7.6 % (21-51); MEAN CORPUSCULAR HEMOGLOBIN 29.9 PG (27.0-31.0); MEAN CORPUSCULAR HGB CONC 33.5 g/dL (33.0-36.5); MEAN CORPUSCULAR VOLUME 89.4 FL (78-98); MEAN PLATELET VOLUME 8.5 FL (7.4-10.4); MONOCYTES # (AUTO) 0.7 X10'3 (0-0.9); MONOCYTES % (AUTO) 4.3 % (2-12); NEUTROPHILS # (AUTO) 13.7 X10'3 (1.8-7.7); NEUTROPHILS % (AUTO) 87.7 % (42-75); PLATELET COUNT 366 X10'3 (140-440); RED BLOOD COUNT 4.34 X10'6 (4.70-6.10); RED CELL DISTRIBUTION WIDTH 12.7 % (11.5-14.5); WHITE BLOOD COUNT 15.7 X10'3 (4.5-11.0)
[2020-10-20 02:33] LABS: ALANINE AMINOTRANSFERASE 31 U/L (12-78); ALBUMIN 1.9 G/DL (3.4-5.0); ALBUMIN/GLOBULIN RATIO 0.5 (1.1-1.5); ALKALINE PHOSPHATASE 90 IU/L (46-116); ANION GAP 3 (8-16); ASPARTATE AMINO TRANSFERASE 30 U/L (10-37); BILIRUBIN,TOTAL 0.4 MG/DL (0.1-1.0); BLOOD UREA NITROGEN 25 MG/DL (7-18); BUN/CREATININE RATIO 42.4 (5.4-32.0); C-REACTIVE PROTEIN 1.19 MG/DL (0.0-0.5); CALCIUM 8.3 MG/DL (8.5-10.1); CHLORIDE 104 MMOL/L (99-107); CREATININE 0.59 MG/DL (0.60-1.10); GLUCOSE 137 MG/DL (70-104); MAGNESIUM 1.9 MG/DL (1.5-2.4); PHOSPHORUS 3.9 MG/DL (2.3-4.5); POTASSIUM 3.5 MMOL/L (3.5-5.1); SODIUM 139 MMOL/L (135-145); TOTAL CARBON DIOXIDE 31.7 MMOL/L (24-32); TOTAL PROTEIN 5.6 G/DL (6.4-8.2); eGFR > 90 ML/MIN
[2020-10-20] MEDS ORDERED: predniSONE 20 mg tablet PO SCH (08:00)
[2020-10-20] MEDS: enoxaparin 60mg/0.6ml syringe SUBCUT SCH ×2 (08:27→19:11)
[2020-10-20] MEDS: aspirin 81mg tablet.DR PO SCH (08:27)
[2020-10-20] MEDS: amLODIPine 5mg tablet PO SCH (08:28)
[2020-10-20] MEDS: losartan 50mg tablet PO SCH ×2 (08:29→19:12)
[2020-10-20] MEDS: famotidine 20mg tablet PO SCH ×2 (08:29→19:12)
[2020-10-20] MEDS: furosemide 20 MG/2 ML vial IV SCH (08:29)
[2020-10-20] MEDS: atorvastatin 20mg tablet PO SCH (08:30)
[2020-10-20] MEDS: sertraline 50mg tablet PO SCH (08:30)
[2020-10-20] MEDS: benzonatate 100mg capsule PO PRN ×2 (08:39→17:28)
[2020-10-20] MEDS ORDERED: potassium Cl 20 mEq SR tablet PO STA (09:27)
[2020-10-20] MEDS: guaiFENesin/codeine phos 10ml UD oral syrup PO PRN ×3 (09:59→21:40)
[2020-10-20] MEDS: ALBUTEROL INHALER 1 PUFF/90 MCG INHALER IH PRN (11:28)
[2020-10-20] MEDS: polyethylene glycol 3350 17gm powd pack PO SCH (12:26)
[2020-10-20] MEDS: insulin Lispro (HumaLOG) vial - multi-dose SQ SCH (19:15)
[2020-10-20] MEDS: methylPREDNISolone sod succ/PF 40mg inj. IV SCH (19:16)
[2020-10-20] MEDS: insulin glargine (Lantus) pen - multi-dose SQ SCH (21:44)
[2020-10-20] MEDS: HYDROcodone/acetaminophen 5mg/325mg tablet PO PRN (23:01)
[2020-10-21] VITALS (22 sets, daily range): BP systolic 125–157; BP diastolic 53–89
[2020-10-21 03:16] LABS: BASOPHILS % (AUTO) 0 % (0-1); EOSINOPHILS % (AUTO) 0.3 % (0-6); HEMOGLOBIN 12.9 g/dl (14.0-17.9); LYMPHOCYTES # (AUTO) 0.5 X10'3 (1.1-4.8); LYMPHOCYTES % (AUTO) 3.9 % (21-51); MEAN CORPUSCULAR HEMOGLOBIN 29.5 PG (27.0-31.0); MEAN CORPUSCULAR HGB CONC 32.9 g/dL (33.0-36.5); MEAN CORPUSCULAR VOLUME 89.7 FL (78-98); MEAN PLATELET VOLUME 8.8 FL (7.4-10.4); MONOCYTES # (AUTO) 0.2 X10'3 (0-0.9); MONOCYTES % (AUTO) 2.1 % (2-12); NEUTROPHILS % (AUTO) 93.7 % (42-75); PLATELET COUNT 338 X10'3 (140-440); RED BLOOD COUNT 4.35 X10'6 (4.70-6.10); RED CELL DISTRIBUTION WIDTH 12.6 % (11.5-14.5); WHITE BLOOD COUNT 11.7 X10'3 (4.5-11.0)
[2020-10-21 03:23] LABS: D-DIMER 1.89 MG/L FEU (0-0.50)
[2020-10-21 03:52] LABS: ALANINE AMINOTRANSFERASE 63 U/L (12-78); ALBUMIN 1.9 G/DL (3.4-5.0); ALBUMIN/GLOBULIN RATIO 0.5 (1.1-1.5); ALKALINE PHOSPHATASE 107 IU/L (46-116); ANION GAP 6 (8-16); ASPARTATE AMINO TRANSFERASE 62 U/L (10-37); BILIRUBIN,TOTAL 0.4 MG/DL (0.1-1.0); BLOOD UREA NITROGEN 22 MG/DL (7-18); BUN/CREATININE RATIO 39.3 (5.4-32.0); C-REACTIVE PROTEIN 1.58 MG/DL (0.0-0.5); CHLORIDE 104 MMOL/L (99-107); CREATININE 0.56 MG/DL (0.60-1.10); GLUCOSE 222 MG/DL (70-104); LACTATE DEHYDROGENASE 497 U/L (85-227); MAGNESIUM 1.9 MG/DL (1.5-2.4); PHOSPHORUS 4.4 MG/DL (2.3-4.5); SODIUM 139 MMOL/L (135-145); TOTAL PROTEIN 5.5 G/DL (6.4-8.2); eGFR > 90 ML/MIN
[2020-10-21] MEDS: benzonatate 100mg capsule PO PRN ×3 (04:39→21:42)
[2020-10-21] MEDS: guaiFENesin/codeine phos 10ml UD oral syrup PO PRN ×3 (04:39→19:03)
[2020-10-21] MEDS: enoxaparin 60mg/0.6ml syringe SUBCUT SCH ×2 (07:49→19:04)
[2020-10-21] MEDS: famotidine 20mg tablet PO SCH ×2 (07:50→19:04)
[2020-10-21] MEDS: sertraline 50mg tablet PO SCH (07:50)
[2020-10-21] MEDS: atorvastatin 20mg tablet PO SCH (07:50)
[2020-10-21] MEDS: aspirin 81mg tablet.DR PO SCH (07:50)
[2020-10-21] MEDS: methylPREDNISolone sod succ/PF 40mg inj. IV SCH ×2 (07:51→19:03)
[2020-10-21] MEDS: amLODIPine 5mg tablet PO SCH (08:00)
[2020-10-21] MEDS: losartan 50mg tablet PO SCH ×2 (08:00→19:03)
[2020-10-21] MEDS: benzocaine/menthol oral lozeng 1 EACH BOX MM PRN (14:01)
--- NOTE | 2020-10-21 14:30 | NUR ---
Reassessment: Pt continues on heart healthy diet documented with mostly 100% PO intake while receiving double protein TID. Per RN at critical care rounds pt frequently asking for snacks. D/w dietary to send additional food items for satiety, see below. [facility] 10/20. Will continue to follow and monitor need for further nutrition intervention. Recommendations: 1) Continue heart healthy diet 2) Hyperglycemic protocol for BG management given steroid use; A1c 5.8% with no documented PMH DM 3) Double eggs WB, double meat BIDLD; yogurt WB, cottage cheese WL, smoothie WS 4) Bowel care per rx 5) Scaled weights per rx Addendum: 10/21/20 at [address] Amended: Links added.
[2020-10-21] MEDS: insulin Lispro (HumaLOG) vial - multi-dose SQ SCH (19:06)
[2020-10-21] MEDS: ALPRAZolam 0.25mg tablet PO PRN (20:34)
[2020-10-21] MEDS: insulin glargine (Lantus) pen - multi-dose SQ SCH (21:45)
[2020-10-21] MEDS: HYDROcodone/acetaminophen 10/325mg tab PO PRN (23:45)
[2020-10-22] VITALS (24 sets, daily range): BP systolic 131–160; BP diastolic 59–94
[2020-10-22 02:48] LABS: BASOPHILS # (AUTO) 0.1 X10'3 (0-0.2); BASOPHILS % (AUTO) 0.3 % (0-1); EOSINOPHILS % (AUTO) 0 % (0-6); HEMATOCRIT 39.2 % (42.0-52.0); HEMOGLOBIN 12.9 g/dl (14.0-17.9); LYMPHOCYTES # (AUTO) 0.6 X10'3 (1.1-4.8); LYMPHOCYTES % (AUTO) 3.7 % (21-51); MEAN CORPUSCULAR HEMOGLOBIN 29.5 PG (27.0-31.0); MEAN CORPUSCULAR HGB CONC 32.9 g/dL (33.0-36.5); MEAN CORPUSCULAR VOLUME 89.7 FL (78-98); MONOCYTES # (AUTO) 0.4 X10'3 (0-0.9); MONOCYTES % (AUTO) 2.4 % (2-12); NEUTROPHILS # (AUTO) 15.6 X10'3 (1.8-7.7); NEUTROPHILS % (AUTO) 93.6 % (42-75); PLATELET COUNT 359 X10'3 (140-440); RED BLOOD COUNT 4.37 X10'6 (4.70-6.10); RED CELL DISTRIBUTION WIDTH 12.7 % (11.5-14.5); WHITE BLOOD COUNT 16.7 X10'3 (4.5-11.0)
[2020-10-22 03:00] LABS: D-DIMER 1.05 MG/L FEU (0-0.50)
[2020-10-22 03:09] LABS: ALANINE AMINOTRANSFERASE 106 U/L (12-78); ALBUMIN/GLOBULIN RATIO 0.5 (1.1-1.5); ALKALINE PHOSPHATASE 134 IU/L (46-116); ANION GAP 7 (8-16); ASPARTATE AMINO TRANSFERASE 103 U/L (10-37); BILIRUBIN,TOTAL 0.4 MG/DL (0.1-1.0); BLOOD UREA NITROGEN 22 MG/DL (7-18); BUN/CREATININE RATIO 35.5 (5.4-32.0); C-REACTIVE PROTEIN 0.91 MG/DL (0.0-0.5); CALCIUM 8.2 MG/DL (8.5-10.1); CHLORIDE 103 MMOL/L (99-107); CREATININE 0.62 MG/DL (0.60-1.10); GLUCOSE 213 MG/DL (70-104); MAGNESIUM 1.9 MG/DL (1.5-2.4); PHOSPHORUS 3.9 MG/DL (2.3-4.5); POTASSIUM 3.9 MMOL/L (3.5-5.1); SODIUM 138 MMOL/L (135-145); TOTAL CARBON DIOXIDE 28.2 MMOL/L (24-32); TOTAL PROTEIN 5.7 G/DL (6.4-8.2); eGFR > 90 ML/MIN
[2020-10-22] MEDS: enoxaparin 60mg/0.6ml syringe SUBCUT SCH ×2 (07:32→20:17)
[2020-10-22] MEDS: sertraline 50mg tablet PO SCH (07:32)
[2020-10-22] MEDS: aspirin 81mg tablet.DR PO SCH (07:33)
[2020-10-22] MEDS: losartan 50mg tablet PO SCH ×2 (07:33→20:00)
[2020-10-22] MEDS: predniSONE 20 mg tablet PO SCH (07:34)
[2020-10-22] MEDS: furosemide 20 MG/2 ML vial IV SCH (07:34)
[2020-10-22] MEDS: atorvastatin 20mg tablet PO SCH (07:34)
[2020-10-22] MEDS: famotidine 20mg tablet PO SCH ×2 (07:34→20:17)
[2020-10-22] MEDS: amLODIPine 5mg tablet PO SCH (07:34)
[2020-10-22] MEDS: polyethylene glycol 3350 17gm powd pack PO SCH ×2 (07:35→08:00)
[2020-10-22] MEDS: guaiFENesin/codeine phos 10ml UD oral syrup PO PRN (09:06)
[2020-10-22] MEDS: benzonatate 100mg capsule PO PRN ×2 (09:06→18:37)
[2020-10-22] MEDS: insulin Lispro (HumaLOG) vial - multi-dose SQ SCH (15:20)
[2020-10-22] MEDS: HYDROcodone/acetaminophen 10/325mg tab PO PRN (18:37)
[2020-10-22] MEDS: ALPRAZolam 0.25mg tablet PO PRN (20:18)
[2020-10-22] MEDS: insulin glargine (Lantus) pen - multi-dose SQ SCH (20:25)
[2020-10-23] VITALS (24 sets, daily range): BP systolic 109–166; BP diastolic 54–82
[2020-10-23] MEDS: HYDROcodone/acetaminophen 10/325mg tab PO PRN (00:52)
[2020-10-23 06:27] LABS: BASOPHILS % (AUTO) 0.2 % (0-1); EOSINOPHILS # (AUTO) 0.1 X10'3 (0-0.9); EOSINOPHILS % (AUTO) 0.8 % (0-6); HEMATOCRIT 37.9 % (42.0-52.0); HEMOGLOBIN 12.8 g/dl (14.0-17.9); LYMPHOCYTES % (AUTO) 15.7 % (21-51); MEAN CORPUSCULAR HEMOGLOBIN 29.9 PG (27.0-31.0); MEAN CORPUSCULAR HGB CONC 33.8 g/dL (33.0-36.5); MEAN CORPUSCULAR VOLUME 88.4 FL (78-98); MEAN PLATELET VOLUME 8.2 FL (7.4-10.4); MONOCYTES # (AUTO) 0.8 X10'3 (0-0.9); MONOCYTES % (AUTO) 6.1 % (2-12); NEUTROPHILS # (AUTO) 9.8 X10'3 (1.8-7.7); NEUTROPHILS % (AUTO) 77.2 % (42-75); PLATELET COUNT 324 X10'3 (140-440); RED BLOOD COUNT 4.29 X10'6 (4.70-6.10); RED CELL DISTRIBUTION WIDTH 12.8 % (11.5-14.5); WHITE BLOOD COUNT 12.7 X10'3 (4.5-11.0)
[2020-10-23 06:35] LABS: D-DIMER 1.55 MG/L FEU (0-0.50)
[2020-10-23 06:47] LABS: ALANINE AMINOTRANSFERASE 72 U/L (12-78); ALBUMIN/GLOBULIN RATIO 0.6 (1.1-1.5); ALKALINE PHOSPHATASE 103 IU/L (46-116); ANION GAP 5 (8-16); ASPARTATE AMINO TRANSFERASE 35 U/L (10-37); BILIRUBIN,TOTAL 0.4 MG/DL (0.1-1.0); BLOOD UREA NITROGEN 21 MG/DL (7-18); BUN/CREATININE RATIO 36.8 (5.4-32.0); C-REACTIVE PROTEIN 0.21 MG/DL (0.0-0.5); CHLORIDE 106 MMOL/L (99-107); CREATININE 0.57 MG/DL (0.60-1.10); GLUCOSE 119 MG/DL (70-104); MAGNESIUM 1.9 MG/DL (1.5-2.4); PHOSPHORUS 3.2 MG/DL (2.3-4.5); POTASSIUM 3.7 MMOL/L (3.5-5.1); SODIUM 143 MMOL/L (135-145); TOTAL CARBON DIOXIDE 32.3 MMOL/L (24-32); TOTAL PROTEIN 5.3 G/DL (6.4-8.2); eGFR > 90 ML/MIN
[2020-10-23] MEDS: polyethylene glycol 3350 17gm powd pack PO SCH (08:00)
[2020-10-23] MEDS: predniSONE 20 mg tablet PO SCH (08:31)
[2020-10-23] MEDS: enoxaparin 60mg/0.6ml syringe SUBCUT SCH ×2 (08:31→20:22)
[2020-10-23] MEDS: sertraline 50mg tablet PO SCH (08:31)
[2020-10-23] MEDS: famotidine 20mg tablet PO SCH ×2 (08:31→20:21)
[2020-10-23] MEDS: losartan 50mg tablet PO SCH ×2 (08:32→20:21)
[2020-10-23] MEDS: atorvastatin 20mg tablet PO SCH (08:32)
[2020-10-23] MEDS: aspirin 81mg tablet.DR PO SCH (08:32)
[2020-10-23] MEDS: amLODIPine 5mg tablet PO SCH (08:32)
[2020-10-23] MEDS: benzocaine/menthol oral lozeng 1 EACH BOX MM PRN ×3 (08:44→22:46)
[2020-10-23] MEDS: insulin Lispro (HumaLOG) vial - multi-dose SQ SCH ×3 (09:11→18:57)
[2020-10-23] MEDS: HYDROcodone/acetaminophen 5mg/325mg tablet PO PRN ×2 (13:30→20:21)
[2020-10-23] MEDS: benzonatate 100mg capsule PO PRN (20:20)
[2020-10-23] MEDS: insulin glargine (Lantus) pen - multi-dose SQ SCH (21:44)
[2020-10-23] MEDS: ALPRAZolam 0.25mg tablet PO PRN (22:24)
[2020-10-23] MEDS: guaiFENesin/codeine phos 10ml UD oral syrup PO PRN (22:45)
[2020-10-24] VITALS (24 sets, daily range): BP systolic 109–162; BP diastolic 60–91
[2020-10-24] MEDS: HYDROcodone/acetaminophen 5mg/325mg tablet PO PRN ×2 (02:31→20:48)
[2020-10-24 06:42] LABS: D-DIMER 0.84 MG/L FEU (0-0.50)
[2020-10-24] MEDS: benzocaine/menthol oral lozeng 1 EACH BOX MM PRN ×3 (07:00→11:12)
[2020-10-24] MEDS: polyethylene glycol 3350 17gm powd pack PO SCH (08:00)
[2020-10-24] MEDS: amLODIPine 5mg tablet PO SCH ×2 (08:00→09:10)
[2020-10-24] MEDS: benzonatate 100mg capsule PO PRN (09:05)
[2020-10-24] MEDS: sertraline 50mg tablet PO SCH (09:07)
[2020-10-24] MEDS: losartan 50mg tablet PO SCH ×2 (09:08→19:26)
[2020-10-24] MEDS: aspirin 81mg tablet.DR PO SCH (09:09)
[2020-10-24] MEDS: atorvastatin 20mg tablet PO SCH (09:09)
[2020-10-24] MEDS: famotidine 20mg tablet PO SCH ×2 (09:09→19:27)
[2020-10-24] MEDS: predniSONE 20 mg tablet PO SCH (09:10)
[2020-10-24] MEDS: furosemide 20 MG/2 ML vial IV SCH (09:10)
[2020-10-24] MEDS: enoxaparin 60mg/0.6ml syringe SUBCUT SCH ×2 (09:11→19:27)
[2020-10-24] MEDS: insulin Lispro (HumaLOG) vial - multi-dose SQ SCH ×2 (09:53→18:40)
[2020-10-24] MEDS: guaiFENesin/codeine phos 10ml UD oral syrup PO PRN (10:40)
--- NOTE | 2020-10-24 11:08 | NUR ---
Patient in room CICU 2006. I have received report from Liliana COONEY and had the opportunity to ask questions and assume patient care.
[2020-10-24] MEDS: ALPRAZolam 0.25mg tablet PO PRN ×2 (12:51→23:09)
--- NOTE | 2020-10-24 18:17 | NUR ---
Problems reprioritized. Patient report given, questions answered & plan of care reviewed with Miguel RN.
[2020-10-24] MEDS: insulin glargine (Lantus) pen - multi-dose SQ SCH (21:43)
[2020-10-25] VITALS (17 sets, daily range): BP systolic 120–162; BP diastolic 53–80
[2020-10-25 06:26] LABS: D-DIMER 0.44 MG/L FEU (0-0.50)
[2020-10-25] MEDS: predniSONE 20 mg tablet PO SCH (09:17)
[2020-10-25] MEDS: enoxaparin 60mg/0.6ml syringe SUBCUT SCH ×2 (09:17→20:20)
[2020-10-25] MEDS: losartan 50mg tablet PO SCH ×2 (09:18→20:19)
[2020-10-25] MEDS: sertraline 50mg tablet PO SCH (09:18)
[2020-10-25] MEDS: atorvastatin 20mg tablet PO SCH (09:19)
[2020-10-25] MEDS: amLODIPine 5mg tablet PO SCH (09:19)
[2020-10-25] MEDS: famotidine 20mg tablet PO SCH ×2 (09:19→20:19)
[2020-10-25] MEDS: aspirin 81mg tablet.DR PO SCH (09:19)
[2020-10-25] MEDS: polyethylene glycol 3350 17gm powd pack PO SCH (09:23)
[2020-10-25] MEDS: benzonatate 100mg capsule PO PRN (11:45)
[2020-10-25] MEDS: insulin Lispro (HumaLOG) vial - multi-dose SQ SCH ×2 (14:09→19:08)
--- NOTE | 2020-10-25 16:07 | NUR ---
Problems reprioritized. Patient report given, questions answered & plan of care reviewed with Tapan COONEY. Patient arrived to PCU, vitals obtained and 2 RN skin check was performed.
--- NOTE | 2020-10-25 17:19 | NUR ---
Agree with physical assessment, however during 2 RN skin check an open area on coccyx was found. Placed order for wound care consult.
--- NOTE | 2020-10-25 18:15 | NUR ---
Patient in room PCU 3009. I have received report from Grisel COONEY and had the opportunity to ask questions and assume patient care.
--- NOTE | 2020-10-25 18:24 | NUR ---
Problems reprioritized. Patient report given, questions answered & plan of care reviewed with Joselin COONEY
--- NOTE | 2020-10-25 18:26 | NUR ---
Orientee documentation: I have reviewed and agree with interventions, assessments performed and documented by Amanda COONEY .Orietnejens Medication Administration: For this medication-pass time frame, medication were reviewed, dispensed, administered and documented per hospital policy by Amanda COONEY .
[2020-10-25] MEDS: HYDROcodone/acetaminophen 5mg/325mg tablet PO PRN (20:21)
[2020-10-25] MEDS: ALPRAZolam 0.25mg tablet PO PRN (21:38)
[2020-10-25] MEDS: insulin glargine (Lantus) pen - multi-dose SQ SCH (21:52)
[2020-10-26 02:00] VITALS: BP 144/66
--- NOTE | 2020-10-26 05:27 | NUR ---
Orientee documentation: I have reviewed and agree with all interventions, assessments performed and documented by Christiane COONEY. For this medication-pass time frame, medication were reviewed, dispensed, administered and documented per hospital policy by Christiane COONEY
--- NOTE | 2020-10-26 06:16 | NUR ---
Problems reprioritized. Patient report given, questions answered & plan of care reviewed with Augusta COONEY.
--- NOTE | 2020-10-26 06:34 | NUR ---
Patient in room PCU 3009. I have received report from Carri RN/IVET Grande and had the opportunity to ask questions and assume patient care.
--- NOTE | 2020-10-26 06:36 | NUR ---
Patient in room PCU 3009. I have received report from Alva COONEY and had the opportunity to ask questions and assume patient care.
[2020-10-26 07:00] VITALS: BP 148/84
[2020-10-26] MEDS: predniSONE 20 mg tablet PO SCH (07:34)
[2020-10-26] MEDS: famotidine 20mg tablet PO SCH ×2 (07:34→20:20)
[2020-10-26] MEDS: losartan 50mg tablet PO SCH ×2 (07:35→20:20)
[2020-10-26] MEDS: atorvastatin 20mg tablet PO SCH (07:35)
[2020-10-26] MEDS: sertraline 50mg tablet PO SCH (07:35)
[2020-10-26] MEDS: amLODIPine 5mg tablet PO SCH (07:35)
[2020-10-26] MEDS: enoxaparin 60mg/0.6ml syringe SUBCUT SCH ×2 (07:36→20:17)
[2020-10-26] MEDS: aspirin 81mg tablet.DR PO SCH (07:36)
[2020-10-26] MEDS: polyethylene glycol 3350 17gm powd pack PO SCH (07:37)
[2020-10-26 11:00] VITALS: BP 147/77
[2020-10-26 11:31] LABS: BASOPHILS # (AUTO) 0.1 X10'3 (0-0.2); BASOPHILS % (AUTO) 0.5 % (0-1); EOSINOPHILS # (AUTO) 0.1 X10'3 (0-0.9); EOSINOPHILS % (AUTO) 0.8 % (0-6); HEMATOCRIT 40.5 % (42.0-52.0); HEMOGLOBIN 13.3 g/dl (14.0-17.9); LYMPHOCYTES # (AUTO) 1.5 X10'3 (1.1-4.8); LYMPHOCYTES % (AUTO) 10.9 % (21-51); MEAN CORPUSCULAR HEMOGLOBIN 29.8 PG (27.0-31.0); MEAN CORPUSCULAR VOLUME 90.3 FL (78-98); MEAN PLATELET VOLUME 7.9 FL (7.4-10.4); MONOCYTES # (AUTO) 1.2 X10'3 (0-0.9); MONOCYTES % (AUTO) 8.6 % (2-12); NEUTROPHILS # (AUTO) 10.8 X10'3 (1.8-7.7); NEUTROPHILS % (AUTO) 79.2 % (42-75); PLATELET COUNT 311 X10'3 (140-440); RED BLOOD COUNT 4.48 X10'6 (4.70-6.10); RED CELL DISTRIBUTION WIDTH 13.4 % (11.5-14.5); WHITE BLOOD COUNT 13.6 X10'3 (4.5-11.0)
[2020-10-26 12:10] LABS: ALANINE AMINOTRANSFERASE 40 U/L (12-78); ALBUMIN 2.1 G/DL (3.4-5.0); ALBUMIN/GLOBULIN RATIO 0.7 (1.1-1.5); ALKALINE PHOSPHATASE 76 IU/L (46-116); ANION GAP 7 (8-16); ASPARTATE AMINO TRANSFERASE 24 U/L (10-37); BILIRUBIN,TOTAL 0.3 MG/DL (0.1-1.0); BLOOD UREA NITROGEN 18 MG/DL (7-18); BUN/CREATININE RATIO 27.7 (5.4-32.0); CALCIUM 7.9 MG/DL (8.5-10.1); CHLORIDE 108 MMOL/L (99-107); CREATININE 0.65 MG/DL (0.60-1.10); GLUCOSE 173 MG/DL (70-104); POTASSIUM 3.6 MMOL/L (3.5-5.1); SODIUM 142 MMOL/L (135-145); TOTAL CARBON DIOXIDE 27.4 MMOL/L (24-32); TOTAL PROTEIN 5.3 G/DL (6.4-8.2); eGFR > 90 ML/MIN
[2020-10-26 15:00] VITALS: BP 121/66
--- NOTE | 2020-10-26 17:37 | NUR ---
Orientee documentation: I have reviewed and agree with all interventions, assessments performed and documented by IVET Fuchs.
--- NOTE | 2020-10-26 17:38 | NUR ---
Orientee Medication Administration: For this medication-pass time frame, all medication were reviewed, dispensed, administered and documented per hospital policy by IVET Fuchs.
[2020-10-26 18:00] VITALS: BP 129/66
--- NOTE | 2020-10-26 18:10 | NUR ---
Patient in room PCU 3009. I have received report from Augusta COONEY and had the opportunity to ask questions and assume patient care.
--- NOTE | 2020-10-26 18:18 | NUR ---
Problems reprioritized. Patient report given, questions answered & plan of care reviewed with IVET Olivera/IVET Grande.
--- NOTE | 2020-10-26 18:18 | NUR ---
Problems reprioritized. Patient report given, questions answered & plan of care reviewed with Alva COONEY. Pt semi fowlers in bed, overhead light on, O2 cannula inplace, alert and pleasant. no s/sx acute distress
[2020-10-26] MEDS: insulin Lispro (HumaLOG) vial - multi-dose SQ SCH (18:56)
[2020-10-26] MEDS: HYDROcodone/acetaminophen 5mg/325mg tablet PO PRN (20:21)
[2020-10-26] MEDS: ALPRAZolam 0.25mg tablet PO PRN (23:01)
[2020-10-26] MEDS: insulin glargine (Lantus) pen - multi-dose SQ SCH (23:04)
--- NOTE | 2020-10-27 06:11 | NUR ---
Problems reprioritized. Patient report given, questions answered & plan of care reviewed with Augusta COONEY.
--- NOTE | 2020-10-27 06:16 | NUR ---
Patient in room PCU 3009. I have received report from Joselin RN/IVET Grande and had the opportunity to ask questions and assume patient care.
[2020-10-27 06:29] LABS: EOSINOPHILS # (AUTO) 0.2 X10'3 (0-0.9); HEMOGLOBIN 13.1 g/dl (14.0-17.9); NEUTROPHILS # (AUTO) 6.9 X10'3 (1.8-7.7)
[2020-10-27 06:32] LABS: BASOPHILS # (AUTO) 0.1 X10'3 (0-0.2); BASOPHILS % (AUTO) 0.6 % (0-1); EOSINOPHILS % (AUTO) 1.7 % (0-6); HEMATOCRIT 39.1 % (42.0-52.0); LYMPHOCYTES % (AUTO) 20.2 % (21-51); MEAN CORPUSCULAR HEMOGLOBIN 30.4 PG (27.0-31.0); MEAN CORPUSCULAR HGB CONC 33.5 g/dL (33.0-36.5); MEAN CORPUSCULAR VOLUME 90.8 FL (78-98); MEAN PLATELET VOLUME 8.6 FL (7.4-10.4); MONOCYTES % (AUTO) 9.4 % (2-12); NEUTROPHILS % (AUTO) 68.1 % (42-75); PLATELET COUNT 256 X10'3 (140-440); RED BLOOD COUNT 4.31 X10'6 (4.70-6.10); RED CELL DISTRIBUTION WIDTH 13.3 % (11.5-14.5); WHITE BLOOD COUNT 10.1 X10'3 (4.5-11.0)
[2020-10-27 06:38] LABS: D-DIMER 0.42 MG/L FEU (0-0.50)
[2020-10-27 07:00] VITALS: BP 153/79
[2020-10-27 07:17] LABS: ALBUMIN 2.1 G/DL (3.4-5.0); ANION GAP 6 (8-16); BLOOD UREA NITROGEN 18 MG/DL (7-18); C-REACTIVE PROTEIN 0.16 MG/DL (0.0-0.5); CALCIUM 8.2 MG/DL (8.5-10.1); CHLORIDE 108 MMOL/L (99-107); GLUCOSE 96 MG/DL (70-104); POTASSIUM 3.7 MMOL/L (3.5-5.1); SODIUM 143 MMOL/L (135-145); TOTAL CARBON DIOXIDE 28.9 MMOL/L (24-32); eGFR > 90 ML/MIN
[2020-10-27] MEDS: amLODIPine 5mg tablet PO SCH (07:58)
[2020-10-27] MEDS: losartan 50mg tablet PO SCH ×2 (07:58→20:40)
[2020-10-27] MEDS: aspirin 81mg tablet.DR PO SCH (07:59)
[2020-10-27] MEDS: benzonatate 100mg capsule PO PRN (07:59)
[2020-10-27] MEDS: HYDROcodone/acetaminophen 5mg/325mg tablet PO PRN (07:59)
[2020-10-27] MEDS: enoxaparin 60mg/0.6ml syringe SUBCUT SCH ×2 (08:00→20:40)
[2020-10-27] MEDS: sertraline 50mg tablet PO SCH (08:00)
[2020-10-27] MEDS: predniSONE 20 mg tablet PO SCH (08:00)
[2020-10-27] MEDS: atorvastatin 20mg tablet PO SCH (08:00)
[2020-10-27] MEDS: polyethylene glycol 3350 17gm powd pack PO SCH (08:00)
[2020-10-27] MEDS: famotidine 20mg tablet PO SCH ×2 (08:01→20:40)
[2020-10-27] MEDS ORDERED: PRED5TAB PO (09:54)
--- NOTE | 2020-10-27 10:44 | NUR ---
O2 Sat at rest on room air:_82__% If below 89%: Recovery O2 Sat at rest on __4_LPM:__93_%:___% via_Nasal Cannula____(mask/nasal cannula, etc..) No further documentation is necessary. If O2 Sat did not drop below 89% on room air,ambulate patient on room air. O2 Sat while ambulating on room air:___% Recovery O2 Sat while ambulating on ___LPM:___% No further documentation is necessary. If patient does not drop below 89% while ambulating, he/she does not qualify for home O2.
[2020-10-27 11:00] VITALS: BP 137/78
[2020-10-27] MEDS: benzocaine/menthol oral lozeng 1 EACH BOX MM PRN (11:08)
--- NOTE | 2020-10-27 14:22 | NUR ---
Paged Case Management Re Brandyn Garcia [id number] Is pt getting 02 delivered today? He's needs to let his ride know. Thank you [phone]
--- NOTE | 2020-10-27 14:57 | NUR ---
Reassessment: Pt PO continues to be 100% at meals on a Heart Healthy diet with double eggs, protein and yogurt or cottage cheese with other meals; meeting nutrient needs. Last BM 10/27 with routine and PRN bowel care available. Will continue to monitor for further intervention if needed. Recommendations: 1) Continue heart healthy diet 2) Hyperglycemic protocol for BG management given steroid use; A1c 5.8% with no documented PMH DM 3) Double eggs WB, double meat BIDLD; yogurt WB, cottage cheese WL, smoothie WS 4) Bowel care per rx 5) Scaled weights per rx Addendum: 10/27/20 at [address] Amended: Links added. Addendum: 10/27/20 at [address] I have reviewed and agree with note by investigator internal affairs. Veronique Hinson RD
[2020-10-27 15:00] VITALS: BP 129/76
[2020-10-27 18:00] VITALS: BP 138/75
--- NOTE | 2020-10-27 18:00 | NUR ---
Patient in room PCU 3009. I have received report from Augusta COONEY and had the opportunity to ask questions and assume patient care with Joe COONEY.
--- NOTE | 2020-10-27 18:05 | NUR ---
Problems reprioritized. Patient report given, questions answered & plan of care reviewed with IVET Diaz/IVET Erickson.
--- NOTE | 2020-10-27 18:23 | NUR ---
Dr. Moreira regarding HR 195 PAGER ID: [phone] MESSAGE: Re: Brandyn Garcia rm [id number]. Pt had heart rate 195 for 8 seconds, pt symptomatic. Once resolved pt stable BP 152/85 HR 86 96% RR 18. Please advise. Georgina/Joe [phone].
--- NOTE | 2020-10-27 18:25 | NUR ---
Spoke with Dr. Caldera, doctor advised cancellation of discharge to monitor overnight and to notify Dr. Dalton for consultation.
--- NOTE | 2020-10-27 18:47 | NUR ---
Called Dr Dalton's answering service, informed them that pt had a 38 beat run of V-tach, and to please have Dr Dalton call back ANA per Dr Caldera's instructions for further cardiac assessment.
[2020-10-27] MEDS ORDERED: LIDOcaine 2 gm/250ml D5W 250 ML IV SCH (19:00)
[2020-10-27] MEDS: ALPRAZolam 0.25mg tablet PO PRN (20:41)
[2020-10-27 22:00] VITALS: BP 145/72
[2020-10-28] VITALS (14 sets, daily range): BP systolic 126–159; BP diastolic 67–83
--- NOTE | 2020-10-28 06:07 | NUR ---
orientee documentation: I have reviewed and agree with all interventions, assessments performed and documented by Georgina COONEY.
--- NOTE | 2020-10-28 06:29 | NUR ---
Problems reprioritized. Patient report given, questions answered & plan of care reviewed with Gabriele COONEY.
[2020-10-28 06:54] LABS: BASOPHILS # (AUTO) 0.1 X10'3 (0-0.2); BASOPHILS % (AUTO) 0.5 % (0-1); EOSINOPHILS # (AUTO) 0.2 X10'3 (0-0.9); HEMATOCRIT 39.4 % (42.0-52.0); HEMOGLOBIN 13.2 g/dl (14.0-17.9); LYMPHOCYTES # (AUTO) 2.2 X10'3 (1.1-4.8); LYMPHOCYTES % (AUTO) 21.2 % (21-51); MEAN CORPUSCULAR HEMOGLOBIN 30.2 PG (27.0-31.0); MEAN CORPUSCULAR HGB CONC 33.4 g/dL (33.0-36.5); MEAN CORPUSCULAR VOLUME 90.3 FL (78-98); MEAN PLATELET VOLUME 8.5 FL (7.4-10.4); MONOCYTES # (AUTO) 0.9 X10'3 (0-0.9); MONOCYTES % (AUTO) 8.4 % (2-12); NEUTROPHILS # (AUTO) 7.1 X10'3 (1.8-7.7); NEUTROPHILS % (AUTO) 67.9 % (42-75); PLATELET COUNT 271 X10'3 (140-440); RED BLOOD COUNT 4.36 X10'6 (4.70-6.10); RED CELL DISTRIBUTION WIDTH 13.7 % (11.5-14.5); WHITE BLOOD COUNT 10.5 X10'3 (4.5-11.0)
[2020-10-28 07:08] LABS: ALANINE AMINOTRANSFERASE 38 U/L (12-78); ALBUMIN 2.2 G/DL (3.4-5.0); ALBUMIN/GLOBULIN RATIO 0.7 (1.1-1.5); ALKALINE PHOSPHATASE 74 IU/L (46-116); ANION GAP 7 (8-16); ASPARTATE AMINO TRANSFERASE 19 U/L (10-37); BILIRUBIN,TOTAL 0.3 MG/DL (0.1-1.0); BLOOD UREA NITROGEN 15 MG/DL (7-18); BUN/CREATININE RATIO 25.9 (5.4-32.0); CALCIUM 7.9 MG/DL (8.5-10.1); CHLORIDE 107 MMOL/L (99-107); CREATININE 0.58 MG/DL (0.60-1.10); GLUCOSE 105 MG/DL (70-104); MAGNESIUM 2.1 MG/DL (1.5-2.4); POTASSIUM 3.4 MMOL/L (3.5-5.1); SODIUM 143 MMOL/L (135-145); TOTAL CARBON DIOXIDE 28.6 MMOL/L (24-32); TOTAL PROTEIN 5.4 G/DL (6.4-8.2); eGFR > 90 ML/MIN
[2020-10-28 07:14] LABS: C-REACTIVE PROTEIN < 0.05 MG/DL (0.0-0.5)
[2020-10-28] MEDS: polyethylene glycol 3350 17gm powd pack PO SCH ×2 (08:00→08:38)
[2020-10-28] MEDS: aspirin 81mg tablet.DR PO SCH (08:37)
[2020-10-28] MEDS: losartan 50mg tablet PO SCH ×2 (08:37→19:52)
[2020-10-28] MEDS: famotidine 20mg tablet PO SCH ×2 (08:38→19:51)
[2020-10-28] MEDS: predniSONE 20 mg tablet PO SCH (08:38)
[2020-10-28] MEDS: amLODIPine 5mg tablet PO SCH (08:38)
[2020-10-28] MEDS: atorvastatin 20mg tablet PO SCH (08:38)
[2020-10-28] MEDS: sertraline 50mg tablet PO SCH (08:38)
[2020-10-28] MEDS: HYDROcodone/acetaminophen 5mg/325mg tablet PO PRN ×2 (08:39→16:44)
[2020-10-28] MEDS: benzonatate 100mg capsule PO PRN (08:39)
[2020-10-28] MEDS: enoxaparin 60mg/0.6ml syringe SUBCUT SCH ×2 (08:39→19:50)
[2020-10-28] MEDS ORDERED: midazolam 1 mg/ML 2ml injection ONE (14:51)
[2020-10-28] MEDS ORDERED: LIDOcaine 1% (10mg/ml)w/preservative injection 20ml MDV ONE (14:51)
[2020-10-28] MEDS ORDERED: fentaNYL/PF 50MCG/1 ML 2ML syringe ONE (14:51)
[2020-10-28] MEDS ORDERED: IOHEXOL 350 MG/ML INFUS..BTL 75ML IV ONE (14:51)
[2020-10-28] MEDS ORDERED: iohexol 350MG/ML 100ml bottle IV ONE (14:52)
[2020-10-28] MEDS ORDERED: magnesium Cl slow-release 64mg tablet PO PRN (15:30)
[2020-10-28] MEDS ORDERED: potassium Cl 40MEQ/1/2NS 520ml 520 ML IV PRN (15:30)
[2020-10-28] MEDS ORDERED: magnesium 4gm in 100ml NS 100 ML IV PRN (15:30)
[2020-10-28] MEDS ORDERED: potassium Cl 20 mEq SR tablet PO PRN (15:30)
[2020-10-28] MEDS: potassium Cl 20 mEq SR tablet PO PRN ×2 (16:44→20:47)
[2020-10-28] MEDS ORDERED: OXAZEpam 15mg capsule PO PRN (16:55)
[2020-10-28] MEDS ORDERED: proCHLORperazine 10 MG/2 ml inj IV PRN (16:55)
[2020-10-28] MEDS ORDERED: nitroGLYCERIN 0.4mg SUBLingual tab SL PRN (16:55)
[2020-10-28] MEDS ORDERED: HYDROcodone/acetaminophen 10/325mg tab PO PRN (16:55)
[2020-10-28] MEDS: normal saline 1000ml 1,000 ML IV SCH (17:04)
--- NOTE | 2020-10-28 18:00 | NUR ---
Patient in room PCU 3009. I have received report from Gabriele COONEY and had the opportunity to ask questions and assume patient care.
[2020-10-28] MEDS: K and/or MAG REPLACEMENT MC SCH (20:18)
[2020-10-28] MEDS ORDERED: LIDOcaine 2 gm/250ml D5W 250 ML IV SCH (22:10)
[2020-10-28] MEDS: ALPRAZolam 0.25mg tablet PO PRN (22:24)
[2020-10-29] MEDS: potassium Cl 20 mEq SR tablet PO PRN (00:41)
[2020-10-29 02:00] VITALS: BP 137/69
--- NOTE | 2020-10-29 05:47 | NUR ---
Orientee documentation: I have reviewed and agree with all interventions, medication administered, assessments performed and documented by Georgina COONEY .
[2020-10-29] MEDS ORDERED: LIDOcaine 2 gm/250ml D5W 250 ML IV SCH (05:57)
[2020-10-29 06:06] VITALS: BP 153/69
--- NOTE | 2020-10-29 06:16 | NUR ---
Problems reprioritized. Patient report given, questions answered & plan of care reviewed with Gabriele COONEY.
--- NOTE | 2020-10-29 06:16 | NUR ---
Problems reprioritized. Patient report given, questions answered & plan of care reviewed with Gabriele COONEY.
[2020-10-29] MEDS: losartan 50mg tablet PO SCH ×2 (09:42→21:24)
[2020-10-29] MEDS: atorvastatin 20mg tablet PO SCH (09:42)
[2020-10-29] MEDS: aspirin 81mg tablet.DR PO SCH (09:43)
[2020-10-29] MEDS: amLODIPine 5mg tablet PO SCH (09:43)
[2020-10-29] MEDS: famotidine 20mg tablet PO SCH ×2 (09:43→21:25)
[2020-10-29] MEDS: sertraline 50mg tablet PO SCH (09:44)
[2020-10-29] MEDS: enoxaparin 60mg/0.6ml syringe SUBCUT SCH ×2 (09:44→21:27)
[2020-10-29] MEDS: prednisone 10mg tablet PO SCH (09:45)
[2020-10-29] MEDS: polyethylene glycol 3350 17gm powd pack PO SCH (09:45)
[2020-10-29] MEDS: K and/or MAG REPLACEMENT MC SCH ×2 (09:46→20:00)
[2020-10-29 11:11] VITALS: BP 153/82
[2020-10-29] MEDS: normal saline 1000ml 1,000 ML IV SCH (12:29)
[2020-10-29 15:15] VITALS: BP 135/78
[2020-10-29 18:00] VITALS: BP 140/76
--- NOTE | 2020-10-29 18:00 | NUR ---
Patient in room PCU 3009. I have received report from Gabriele COONEY and had the opportunity to ask questions and assume patient care with Purvi COONEY.
--- NOTE | 2020-10-29 18:00 | NUR ---
Patient in room PCU 3009. I have received report from Gabriele COONEY and had the opportunity to ask questions and assume patient care.
[2020-10-29 22:00] VITALS: BP 150/83
[2020-10-29] MEDS: ALPRAZolam 0.25mg tablet PO PRN (22:04)
[2020-10-30 02:00] VITALS: BP 155/81
[2020-10-30] MEDS: benzocaine/menthol oral lozeng 1 EACH BOX MM PRN ×3 (04:55→11:18)
--- NOTE | 2020-10-30 05:30 | NUR ---
Patient wanting more education regarding ejection fraction and cardiac output. Patient is attentive and eager to learn. Patient asking frequent questions regarding plan of care and disease process.
[2020-10-30 06:00] VITALS: BP 139/76
--- NOTE | 2020-10-30 06:06 | NUR ---
Problems reprioritized. Patient report given, questions answered & plan of care reviewed with Urbano COONEY.
--- NOTE | 2020-10-30 06:06 | NUR ---
Orientee documentation: I have reviewed and agree with all medication administered, interventions, assessments performed and documented by Georgina COONEY .
--- NOTE | 2020-10-30 06:09 | NUR ---
Problems reprioritized. Patient report given, questions answered & plan of care reviewed with Urbano COONEY.
--- NOTE | 2020-10-30 06:38 | NUR ---
Patient in room PCU 3009. I have received report from Purvi COONEY and had the opportunity to ask questions and assume patient care.
[2020-10-30] MEDS: famotidine 20mg tablet PO SCH (08:00)
[2020-10-30] MEDS: polyethylene glycol 3350 17gm powd pack PO SCH (08:00)
[2020-10-30] MEDS: K and/or MAG REPLACEMENT MC SCH (08:00)
[2020-10-30] MEDS: amLODIPine 5mg tablet PO SCH (09:10)
[2020-10-30] MEDS: sertraline 50mg tablet PO SCH (09:10)
[2020-10-30] MEDS: enoxaparin 60mg/0.6ml syringe SUBCUT SCH (09:10)
[2020-10-30] MEDS: aspirin 81mg tablet.DR PO SCH (09:11)
[2020-10-30] MEDS: prednisone 10mg tablet PO SCH (09:11)
[2020-10-30] MEDS: atorvastatin 20mg tablet PO SCH (09:11)
[2020-10-30] MEDS: losartan 50mg tablet PO SCH (09:11)
[2020-10-30] MEDS: normal saline 1000ml 1,000 ML IV SCH (09:20)
[2020-10-30] MEDS ORDERED: ALPR-624 PO (09:40)
[2020-10-30] MEDS ORDERED: PRED5TAB PO (09:40)
[2020-10-30 11:00] VITALS: BP 141/73
--- NOTE | 2020-10-30 14:38 | NUR ---
Patient safe for discharge per MD orders, discharge instructions reviewed and questions answered, tele and piv DC, O2 and life vest with patient, wheeled to lobby, picked up in personal vehicle.
== END 2020-10-30 14:30 | disposition home or self-care (01) | DRG 137 ==
LOC: ER 12:14 → ED HOLD 14:58 → PCU 3S 16:44 → CICU 2S 10-14 11:31 → PCU 3S 10-25 15:55
PROVIDERS: ADMIT Family Medicine; ATTEND Family Medicine
PROC: XW033E5 Introduction of Remdesivir Anti-infective into Peripheral Vein, Percutaneous Approach, New Technology Group 5 (ICD-10-PCS; 2020-10-11)
PROC: B32T1ZZ Computerized Tomography (CT Scan) of Left Pulmonary Artery using Low Osmolar Contrast (ICD-10-PCS; 2020-10-11)
PROC: B3201ZZ Computerized Tomography (CT Scan) of Thoracic Aorta using Low Osmolar Contrast (ICD-10-PCS; 2020-10-11)
PROC: B32S1ZZ Computerized Tomography (CT Scan) of Right Pulmonary Artery using Low Osmolar Contrast (ICD-10-PCS; 2020-10-11)
PROC: 5A0955A Assistance with Respiratory Ventilation, Greater than 96 Consecutive Hours, High Flow/Velocity Cannula (ICD-10-PCS; 2020-10-12)
PROC: 4A023N7 Measurement of Cardiac Sampling and Pressure, Left Heart, Percutaneous Approach (ICD-10-PCS; principal; 2020-10-28)
PROC: B2111ZZ Fluoroscopy of Multiple Coronary Arteries using Low Osmolar Contrast (ICD-10-PCS; 2020-10-28)
PROC: B2151ZZ Fluoroscopy of Left Heart using Low Osmolar Contrast (ICD-10-PCS; 2020-10-28)
DX: U07.1 COVID-19 (principal); I47.1 Supraventricular tachycardia; J12.82 Pneumonia due to coronavirus disease 2019; J44.0 Chronic obstructive pulmonary disease with (acute) lower respiratory infection; E66.01 Morbid (severe) obesity due to excess calories; J80 Acute respiratory distress syndrome; E78.00 Pure hypercholesterolemia, unspecified; E78.5 Hyperlipidemia, unspecified; F32.9 Major depressive disorder, single episode, unspecified; F41.9 Anxiety disorder, unspecified; G47.31 Primary central sleep apnea; G47.33 Obstructive sleep apnea (adult) (pediatric); I10 Essential (primary) hypertension; I24.8 Other forms of acute ischemic heart disease; F17.220 Nicotine dependence, chewing tobacco, uncomplicated; I25.10 Atherosclerotic heart disease of native coronary artery without angina pectoris; I45.10 Unspecified right bundle-branch block; R77.8 Other specified abnormalities of plasma proteins; R00.1 Bradycardia, unspecified; R10.13 Epigastric pain; R79.82 Elevated C-reactive protein (CRP); Z68.35 Body mass index [BMI] 35.0-35.9, adult; Z79.82 Long term (current) use of aspirin; Z79.899 Other long term (current) drug therapy; Z83.3 Family history of diabetes mellitus; Z95.5 Presence of coronary angioplasty implant and graft; Z99.81 Dependence on supplemental oxygen; Z91.19 Patient's noncompliance with other medical treatment and regimen
CPT/HCPCS: 36415; 71045; 71275; 80048; 80053; 80061; 81001; 82948; 83036; 83605; 83615; 83735; 83880; 84100; 84132; 84145; 84484; 85025; 85379; 85610; 85730; 86140; 87040; 87081; 87088; 93005; 93306; 93308; 94640; 94760; 96360; 97110; 97116; 97161; 97164; 97530; 99153; 99285; G0378; J0461; J1100; J1644; J1650; J1815; J1940; J2001; J2250; J2270; J2920; J3010; J3490; J7030; J7512; Q9967

== ENCOUNTER 2020-12-03 11:11 | Day surgery (SDC) | payer MEDICAID ==
[~2020-12-03] VITALS: Ht 182.9 cm; Wt 112.4 kg
[2020-12-03] VITALS (8 sets, daily range): BP systolic 123–181; BP diastolic 67–106
[~2020-12-03 11:11] MED LIST changes: +ALBU90AE PO; +ALPR-624 PO; +AMLO10TA13 PO; -AMLO2.5T2 PO; +ATOR40TA72 PO; -GEMF600T PO; +LIDOcaine 2% 5ml jelly ONE; +LOSA100T57 PO; -LOSA25TA96 PO; +PRED5TAB PO; -TURM538C PO
[2020-12-03] MEDS ORDERED: cefazolin/dext.iso 2gm/100ml 100 ML IV ONE (11:55)
[2020-12-03] MEDS ORDERED: ALPR-624 PO (11:55)
[2020-12-03] MEDS ORDERED: proCHLORperazine 10 MG/2 ml inj ONE (11:59)
[2020-12-03] MEDS ORDERED: VANCOMYCIN 1,500MG inj. 1,500 MG in normal saline 250ml IV soln 300 ML IV ONE (12:00)
[2020-12-03] MEDS ORDERED: fentaNYL/PF 50MCG/1 ML 2ML syringe ONE ×4 (12:00→13:30)
[2020-12-03] MEDS ORDERED: vancomycin 1,000mg inj ONE (12:00)
[2020-12-03] MEDS ORDERED: VANCOMYCIN 1,500MG in NS 500ml IVPB IV ONE (12:00)
[2020-12-03] MEDS ORDERED: midazolam 1 mg/ML 2ml injection ONE ×4 (12:00→13:27)
[2020-12-03] MEDS ORDERED: LIDOcaine 1% W/epiNEPHrine 1:100,000 20ml vial ONE ×2 (12:01→12:56)
[2020-12-03 12:19] LABS: BASOPHILS # (AUTO) 0.1 X10'3 (0-0.2); BASOPHILS % (AUTO) 1.3 % (0-1); EOSINOPHILS # (AUTO) 0.2 X10'3 (0-0.9); EOSINOPHILS % (AUTO) 3.2 % (0-6); HEMATOCRIT 43.4 % (42.0-52.0); HEMOGLOBIN 14.9 g/dl (14.0-17.9); LYMPHOCYTES # (AUTO) 1.7 X10'3 (1.1-4.8); LYMPHOCYTES % (AUTO) 23.7 % (21-51); MEAN CORPUSCULAR HEMOGLOBIN 29.8 PG (27.0-31.0); MEAN CORPUSCULAR HGB CONC 34.3 g/dL (33.0-36.5); MEAN CORPUSCULAR VOLUME 86.9 FL (78-98); MEAN PLATELET VOLUME 8.3 FL (7.4-10.4); MONOCYTES # (AUTO) 0.7 X10'3 (0-0.9); MONOCYTES % (AUTO) 9.4 % (2-12); NEUTROPHILS # (AUTO) 4.4 X10'3 (1.8-7.7); NEUTROPHILS % (AUTO) 62.4 % (42-75); PLATELET COUNT 243 X10'3 (140-440); RED BLOOD COUNT 4.99 X10'6 (4.70-6.10); RED CELL DISTRIBUTION WIDTH 13.4 % (11.5-14.5); WHITE BLOOD COUNT 7.1 X10'3 (4.5-11.0)
[2020-12-03] MEDS ORDERED: ceFAZolin 2gm in dextrose, iso 50 ML IV ONE (12:25)
[2020-12-03 12:41] LABS: ALANINE AMINOTRANSFERASE 18 U/L (12-78); ALKALINE PHOSPHATASE 102 IU/L (46-116); ANION GAP 11 (8-16); ASPARTATE AMINO TRANSFERASE 20 U/L (10-37); BILIRUBIN,TOTAL 0.5 MG/DL (0.1-1.0); BLOOD UREA NITROGEN 13 MG/DL (7-18); BUN/CREATININE RATIO 16.7 (5.4-32.0); CHLORIDE 103 MMOL/L (99-107); CREATININE 0.78 MG/DL (0.60-1.10); GLUCOSE 112 MG/DL (70-104); MAGNESIUM 1.9 MG/DL (1.5-2.4); POTASSIUM 3.1 MMOL/L (3.5-5.1); SODIUM 145 MMOL/L (135-145); TOTAL PROTEIN 8.1 G/DL (6.4-8.2); eGFR > 90 ML/MIN
[2020-12-03] MEDS ORDERED: potassium Cl 20 mEq SR tablet PO STA ×2 (14:12→14:27)
--- NOTE | 2020-12-03 14:45 | NUR ---
pt dropped potassium on the floor. called pharmacy and they ok'd to pull out again.
== END 2020-12-03 16:00 | disposition home or self-care (01) ==
LOC: SSTAY O 11:11
PROVIDERS: ATTEND Internal Medicine Cardiovascular Disease
DX: I47.2 Ventricular tachycardia (principal); I49.5 Sick sinus syndrome; I25.10 Atherosclerotic heart disease of native coronary artery without angina pectoris; I10 Essential (primary) hypertension; E78.00 Pure hypercholesterolemia, unspecified; Z79.82 Long term (current) use of aspirin; Z79.899 Other long term (current) drug therapy; Z98.890 Other specified postprocedural states; Z87.01 Personal history of pneumonia (recurrent); Z82.49 Family history of ischemic heart disease and other diseases of the circulatory system; Z80.1 Family history of malignant neoplasm of trachea, bronchus and lung
CPT/HCPCS: 33249; 36415; 71045; 80053; 83735; 85025; 85610; 99152; 99153; C1721; C1894; C1895; J0780; J2250; J3010; J3370; A4620; A6258